=== PATIENT | female | born 1980 | race Caucasian/White ===

== ENCOUNTER 2018-09-26 14:47 | Emergency (ER) | payer OTHER ==
--- NOTE | 2018-09-26 15:22 | ED ---
Complex/Multi-Sys Presentation - HPI Summary HPI Summary: Patient is a 38 y/o F presenting to ED with complaints of congestion, cough, SOB , pruritus and puffiness of eyes, headache for the past ten days with a recent exacerbation in Sx in the past two days. Patient reports that she has been taking Dayquil and notes that she is a current smoker. PMHx of anxiety, depression, bipolar disorder. PSHx of and tubal ligation. FMHx of depression. She denies alcohol and substance usage. While patient reports some MOORE in the room, on triage, pain is denied, nothing is noted to aggravate/ alleviate Sx. Home medications and allergies are reviewed. Mother is present in the room as well. - History Of Current Complaint Chief Complaint: EDFluSymptoms Time Seen by Provider: 09/26/18 15:17 Hx Obtained From: Patient Onset/Duration: Lasting Days - ten days, Still Present, Worse Since - two days Timing: Constant, Days - ten days Severity Currently: Mild Character: Typical Headache Aggravating Factor(s): nothing Alleviating Factor(s): nothing Associated Signs And Symptoms: Positive: Headache, SOB, Cough, Other - congestion, pruritus and puffiness of eyes - Allergies/Home Medications Allergies/Adverse Reactions: Allergies Allergy/AdvReac Type Severity Reaction Status Date / Time No Known Allergies Allergy Verified 05/26/14 13:15 PMH/Surg Hx/FS Hx/Imm Hx Endocrine/Hematology History: Denies: Hx Diabetes, Hx Thyroid Disease Cardiovascular History: Denies: Hx Hypertension Respiratory History: Denies: Hx Asthma, Hx Chronic Obstructive Pulmonary Disease (COPD) GI History: Denies: Hx Ulcer Psychiatric History: Reports: Hx Anxiety, Hx Depression, Hx Community Mental Health Tx, Hx Bipolar Disorder Denies: Hx Eating Disorder, Hx of Violent Episodes Against Others - Surgical History Surgery Procedure, Year, and Place: csection, tubal ligation Infectious Disease History: No Infectious Disease History: Denies: Hx Hepatitis, Hx Human Immunodeficiency Virus (HIV), Traveled Outside the [place] in Last 30 Days - Family History Known Family History: Positive: Other - FMHx of depression - Social History Alcohol Use: None Substance Use Type: Reports: None Smoking Status (MU): Current Every Day Smoker Type: Cigarettes Amount Used/How Often: 1/2ppd Have You Smoked in the Last Year: Yes Review of Systems Eyes: Other - POSITIVE - PUFFINESS AND PRURITUS OF EYES ENT: Other - POSITIVE - CONGESTION Positive: Shortness Of Breath, Cough Positive: Headache All Other Systems Reviewed And Are Negative: Yes Physical Exam - Summary Physical Exam Summary: Appearance: well appearing, no pain distress Skin: warm, dry, reflects adequate perfusion Head/face: normal Eyes: EOMI, JOHNNY ENT: mucous membranes moist; bilateral maxillary sinus tenderness, no nasal discharge Neck: supple, non-tender Respiratory: dry cough, no wheezes, breath sounds present, all else normal Cardiovascular: RRR, pulses symmetrical Abdomen: non-tender, soft Bowel Sounds: present Musculoskeletal: normal, strength/ROM intact Neuro: normal, sensory motor intact, A&Ox3 Triage Information Reviewed: Yes Vital Signs On Initial Exam: Initial Vitals Temp Pulse Resp BP Pulse Ox 97.8 F 96 18 136/89 94 09/26/18 15:01 09/26/18 15:01 09/26/18 15:01 09/26/18 15:01 09/26/18 15:01 Vital Signs Reviewed: Yes Diagnostics - Vital Signs Vital Signs Temp Pulse Resp BP Pulse Ox 09/26/18 15:01 97.8 F 96 18 136/89 94 - Laboratory Lab Statement: Any lab studies that have been ordered have been reviewed, and results considered in the medical decision making process. Complex Multi-Symp Course/Dx Course Of Treatment: Patient with cough and cold symptoms for over 10 days. Now with sinus pressure. No fever. Sinus tenderness to palpation/percussion. Treat as sinusitis. Antibiotics given. Follow-up primary care physician. - Diagnoses Differential Diagnoses/HQI/PQRI: Other - URI, bronchitis, sinusitis Provider Diagnoses: Acute sinusitis, Cough Discharge - Sign-Out/Discharge Documenting (check all that apply): Patient Departure - discharge Patient Received Moderate/Deep Sedation with Procedure: No - Discharge Plan Condition: Improved Disposition: HOME Prescriptions: Albuterol HFA INHALER* [Ventolin HFA Inhaler*] 2 puff INH Q4H PRN #1 mdi PRN Reason: Sob/Wheezing Azithromycin TAB* [Zithromax TAB (Z-ILDEFONSO) 250 mg #6 tabs] 2 tab PO .TODAY, THEN 1 DAILY #1 ildefonso Loratadine/Pseudoephedrine [Claritin-D 24 Hour Tablet] 1 each PO DAILY #10 tab.er.24h predniSONE TAB* [Deltasone TAB*] 50 mg PO DAILY #5 tab Patient Education Materials: Sinusitis (ED) Referrals: [facility] [Outside] Additional Instructions: Tylenol, ibuprofen for discomfort. Vitamin C may help. Return if worse, new symptoms or other concerns. - Billing Disposition and Condition Condition: IMPROVED Disposition: Home - Attestation Statements Document Initiated by Scribe: Yes Documenting Scribe: ENID GAINES Provider For Whom Belkis is Documenting (Include Credential): BRITTNY LILLY MD Scribe Attestation: ENID Kuhn, scribed for BRITTNY LILLY MD on 09/26/18 at 1839. Scribe Documentation Reviewed: Yes Provider Attestation: The documentation as recorded by the ENID barragan accurately reflects the service I personally performed and the decisions made by , BRITTNY LILLY MD Status of Scribe Document: Viewed
[2018-09-26 15:50] VITALS: BP 136/84
== END 2018-09-26 15:49 | disposition home or self-care (01) ==
LOC: ED 14:47
DX: J01.90 Acute sinusitis, unspecified (principal); R05 Cough; F17.210 Nicotine dependence, cigarettes, uncomplicated
CPT/HCPCS: 99281

== ENCOUNTER 2018-11-03 21:25 | Emergency (ER) | payer OTHER ==
[2018-11-03] MEDS ORDERED: Albuterol/Ipratropium NEB.SOL* Albuterol 2.5 MG/Ipratropium 0.5 MG 3 ML INH ONE (23:31)
--- NOTE | 2018-11-03 23:39 | ED ---
Respiratory - HPI Summary HPI Summary: A 38 y/o female accompanied by her father presents to [facility] with a chief complaint of a cough for the past 3 weeks that has worsened today. The patient rates her pain as a 3/10 in severity. She claims that tonight her right lung hurts, she feels SOB, and her legs and kidneys hurt with movement. She reports a dry cough and her legs have been swollen for a week. The patient takes lithium along with other psych medications which is prescribed from her psychiatrist. The patient does not have a PCP. She did get a flu shot. She is a smoker. Her HR is normal and on room air her O2 Sat is 95%-97%. - History of Current Complaint Chief Complaint: EDShortnessOfBreath Stated Complaint: COUGH, RT LUNGS HURT PER PT Time Seen by Provider: 11/03/18 23:17 Hx Obtained From: Patient, Family/Right Of Way Agent Onset/Duration: Gradual Onset, Lasting Weeks, Still Present Timing: Constant Initial Severity: Mild Current Severity: Moderate Pain Intensity: 3 - out of 10 Character: Cough (Nonproductive) Aggravating Factor(s): Movement Alleviating Factor(s): Nothing Associated Signs and Symptoms: SOB, Calf Pain/Swelling - Allergy/Home Medications Allergies/Adverse Reactions: Allergies Allergy/AdvReac Type Severity Reaction Status Date / Time No Known Allergies Allergy Verified 11/03/18 21:30 Home Medications: Home Medications Girard Carbonate TAB* 1 tab PO QID 11/03/18 [History Confirmed 11/03/18] Prazosin HCl 1 mg PO DAILY 11/03/18 [History Confirmed 11/03/18] Venlafaxine HCl [Venlafaxine HCl ER] 225 mg PO DAILY 11/03/18 [History Confirmed 11/03/18] clonazePAM [Clonazepam] 2 tab PO QID 11/03/18 [History Confirmed 11/03/18] traZODone TAB* [Desyrel TAB*] 150 mg PO BEDTIME 11/03/18 [History Confirmed ] PMH/Surg Hx/FS Hx/Imm Hx Endocrine/Hematology History: Denies: Hx Diabetes, Hx Thyroid Disease Cardiovascular History: Denies: Hx Hypertension Respiratory History: Denies: Hx Asthma, Hx Chronic Obstructive Pulmonary Disease (COPD) GI History: Denies: Hx Ulcer Psychiatric History: Reports: Hx Anxiety, Hx Depression, Hx Community Mental Health Tx, Hx Bipolar Disorder Denies: Hx Eating Disorder, Hx of Violent Episodes Against Others - Surgical History Surgery Procedure, Year, and Place: csection, tubal ligation Infectious Disease History: No Infectious Disease History: Denies: Hx Hepatitis, Hx Human Immunodeficiency Virus (HIV), Traveled Outside the [place] in Last 30 Days - Family History Known Family History: Positive: Other - FMHx of depression - Social History Alcohol Use: None Substance Use Type: Reports: None Smoking Status (MU): Current Every Day Smoker Type: Cigarettes Amount Used/How Often: 1/2ppd Have You Smoked in the Last Year: Yes Review of Systems Negative: Fever Positive: Shortness Of Breath, Cough Positive: Myalgia - leg pain All Other Systems Reviewed And Are Negative: Yes Physical Exam - Summary Physical Exam Summary: Constitutional: Well-developed, Well-nourished, Alert. (-) Distressed Skin: Warm, Dry HENT: Normocephalic; Atraumatic Eyes: Conjunctiva normal Neck: Musculoskeletal ROM normal neck. (-) JVD, (-) Stridor, (-) Tracheal deviation Cardio: Rhythm regular, rate normal, Heart sounds normal; Intact distal pulses; The pedal pulses are 2+ and symmetric. Radial pulses are 2+ and symmetric. Pulmonary/Chest wall: at the end of coughing or forced exhalation she has a trace bit of wheezing, (-) Respiratory distress, (-) Rales Abd: Soft, (-) tenderness, (-) Distension, (-) Guarding, (-) Rebound Musculoskeletal: (-) Edema Neuro: Alert, Oriented x3 Psych: no SI or HI, answering questions appropriately. Triage Information Reviewed: Yes Vital Signs On Initial Exam: Initial Vitals Temp Pulse Resp BP Pulse Ox 97.9 F 92 18 147/83 97 11/03/18 21:29 11/03/18 21:29 11/03/18 21:29 11/03/18 21:29 11/03/18 21:29 Vital Signs Reviewed: Yes Diagnostics - Vital Signs Vital Signs Temp Pulse Resp BP Pulse Ox 11/03/18 23:08 95 98 11/03/18 23:07 89 125/96 96 11/03/18 21:29 97.9 F 92 18 147/83 97 - Laboratory Result Diagrams: 11/03/18 23:45 Lab Statement: Any lab studies that have been ordered have been reviewed, and results considered in the medical decision making process. - Radiology CXR Radiology Interpretation Completed By: ED Physician Summary of Radiographic Findings: No focal consolidations. No effusions. Pending official imaging report. Disposition - Course Course Of Treatment: A 38 y/o female accompanied by her father presents to [facility] with a chief complaint of a cough for the past 3 weeks that has worsened today. The physical exam revealed that at the end of coughing or forced exhalation she has a trace bit of wheezing, no SI or HI, answering questions appropriately. CXR showed No focal consolidations. No effusions. In the ED course the patient was given Duoneb INH. Chemistry, urines and toxicology obtained. The urines showed some squamous cells, nothing to suggest UTI. Dx: viral syndrome. The patient will be discharged and follow up with her PCP about smoking cessation. The patient is agreeable with this plan. - Diagnoses Provider Diagnoses: Viral syndrome Discharge - Sign-Out/Discharge Documenting (check all that apply): Patient Departure - DC Patient Received Moderate/Deep Sedation with Procedure: No - Discharge Plan Condition: Improved Disposition: HOME Prescriptions: Albuterol HFA INHALER* [Ventolin HFA Inhaler*] 1 puff INH Q4H PRN #1 mdi PRN Reason: Sob/Wheezing Patient Education Materials: Albuterol (By breathing), How to Stop Smoking (ED) , Viral Syndrome (ED) Referrals: [facility] [Outside] No Primary Care Phys,NOPCP [Primary Care Provider] - - Billing Disposition and Condition Condition: IMPROVED Disposition: Home - Attestation Statements Document Initiated by Seleneibe: Yes Documenting Scribe: Ishaan Katz Provider For Whom Belkis is Documenting (Include Credential): Kye Ferrer MD Scribe Attestation: Ishaan Kuhn scribed for Kye Ferrer MD on 11/04/18 at 0612. Scribe Documentation Reviewed: Yes Provider Attestation: The documentation as recorded by the Ishaan barragan accurately reflects the service I personally performed and the decisions made by me, Kye Ferrer MD Status of Scribe Document: Viewed
[2018-11-04 00:05] LABS: Urine Appearance Clear; Urine Bacteria 1+ (Absent); Urine Bilirubin Negative (Negative); Urine Blood 2+ (Negative); Urine Color Straw; Urine Glucose Negative (Negative); Urine Ketones Negative (Negative); Urine Nitrite Negative (Negative); Urine Protein Negative (Negative); Urine Red Blood Cell 3+(>10/hpf) (Absent); Urine Squamous Epithelial Cell Present (Absent); Urine Urobilinogen Negative (Negative); Urine White Blood Cell Trace(0-5/hpf) (Absent)
[2018-11-04 00:15] LABS: BUN/Creatinine Ratio 20.5 (8-20); EGFR African American 107.4 (>60); EGFR Non-African American 88.8 (>60); Potassium 3.5 mmol/L (3.5-5.0)
[2018-11-04 00:25] LABS: Lithium 0.46 mmol/L (0.6-1.2)
[2018-11-04 01:40] VITALS: BP 123/61
== END 2018-11-04 01:09 | disposition home or self-care (01) ==
LOC: ED 21:25
DX: B34.9 Viral infection, unspecified (principal); F17.210 Nicotine dependence, cigarettes, uncomplicated; Z79.899 Other long term (current) drug therapy
CPT/HCPCS: 36415; 71046; 80048; 80178; 81003; 81015; 87086; 99283; A9270-GY

== ENCOUNTER 2021-05-19 23:19 | Inpatient (IN) ==
[2021-05-19 23:53] LABS: ABS Basophils 0.1 10^3/ul (0-0.2); ABS Eosinophils 0.1 10^3/ul (0-0.6); ABS Lymphocytes 1.8 10^3/ul (1.0-4.8); ABS Monocytes 0.8 10^3/ul (0-0.8); ABS Neutrophils 7.5 10^3/ul (1.5-7.7); Eosinophil % 1.1 %; Hematocrit 34 % (35-47); Hemoglobin 11.3 g/dL (12.0-16.0); Lymphocyte % 17.1 %; Mean Corpuscular HGB Conc 34 g/dL (31-36); Mean Corpuscular Hemoglobin 35 pg (27-31); Mean Corpuscular Volume 105 fL (80-97); Mean Platelet Volume 7.9 fL (7.4-10.4); Platelet Count 251 10^3/uL (150-450); Red Blood Count 3.21 10^6 /uL (3.70-4.87); Red Cell Distribution Width 17 % (10-15); White Blood Count 10.3 10^3/uL (3.5-10.8)
[2021-05-20 00:10] LABS: ALT 40 U/L (7-52); AST 98 U/L (13-39); Albumin 2.8 g/dL (3.2-5.2); Albumin/Globulin Ratio 0.8 (1-3); Alkaline Phosphatase 352 U/L (35-149); Anion Gap 12 mmol/L (2-11); CO2 Carbon Dioxide 25 mmol/L (22-32); Calcium 8.4 mg/dL (8.6-10.3); Chloride 96 mmol/L (101-111); Globulin 3.6 g/dL (2-4); Glucose 111 mg/dL (70-100); Potassium 2.9 mmol/L (3.5-5.0); Sodium 133 mmol/L (135-145); Total Protein 6.4 g/dL (6.4-8.9); eGFR CKD-EPI 120.6 (>60)
[2021-05-20 00:13] LABS: Troponin I 0.01 ng/mL (<0.03)
[2021-05-20 00:17] LABS: HCG Pregnancy < 0.60 mIU/mL
[2021-05-20] MEDS ORDERED: Lactated Ringers 1000 ml BAG 1,000 ML IV ONE ×2 (00:31→04:53)
[2021-05-20 00:36] LABS: Blood Urea Nitrogen 1 mg/dL (6-24)
[2021-05-20] MEDS ORDERED: Iohexol 300 (CONTRAST) 10 ML SDV IV ONE (01:04)
[2021-05-20 01:08] LABS: Rapid COVID-19 Molecular Undetected (Undetected)
[2021-05-20] MEDS ORDERED: Potassium Chlor 20 meq TAB.ER PO ONE (03:27)
[2021-05-20] MEDS ORDERED: Albuterol HFA INHALER 8 gm MDI INH PRN (04:56)
[2021-05-20] MEDS ORDERED: NS 0.9% w/ 40 Meq KCL 1000 ML 1,000 ML IV SCH (05:00)
[2021-05-20] MEDS: Ondansetron 4 mg VIAL 2 MG/ML 2 ml VIAL IV PRN ×2 (05:26→18:23)
[2021-05-20 06:11] LABS: C Reactive Protein 74.17 mg/L (<8.01); Indirect Bilirubin 1.2 mg/dL (0.3-1.0); Magnesium 1.9 mg/dL (1.9-2.7)
[2021-05-20 06:45] LABS: TSH Ultra Thyroid Stim Horm 2.38 mcIU/mL (0.34-5.60)
[2021-05-20 06:56] LABS: Folate 6.18 ng/mL (5.90-24.80)
[2021-05-20 06:57] LABS: Vitamin B12 722 pg/mL (180-914)
[2021-05-20 09:00] LABS: Anion Gap 10 mmol/L (2-11); CO2 Carbon Dioxide 26 mmol/L (22-32); Calcium 8.5 mg/dL (8.6-10.3); Chloride 99 mmol/L (101-111); Glucose 135 mg/dL (70-100); Potassium 3.4 mmol/L (3.5-5.0); Sodium 135 mmol/L (135-145); eGFR CKD-EPI 121.2 (>60)
[2021-05-20 09:39] LABS: Lipase < 10 U/L (11.0-82.0)
[2021-05-20 09:58] LABS: Blood Urea Nitrogen < 2 mg/dL (6-24)
[2021-05-20] MEDS: Enoxaparin 40 MG/0.4 ML SYR SUBCUT SCH (10:41)
[2021-05-20 11:23] LABS: Hepatitis B Surface Antigen Nonreactive (Nonreactive)
[2021-05-20 11:28] LABS: Hepatitis A Ab IgM Negative (Negative); Hepatitis B Core IgM Nonreactive (Nonreactive)
[2021-05-20 11:40] LABS: Hepatitis C Antibody Negative (Negative)
[2021-05-20] MEDS: NS 0.9% 1000 ml BAG 1,000 ML IV SCH ×2 (13:50→23:35)
[2021-05-20] MEDS ORDERED: PEG 3000 GI LAVAGE 1 GALLON PO ONE (17:14)
[2021-05-20 18:19] LABS: Anion Gap 8 mmol/L (2-11); CO2 Carbon Dioxide 28 mmol/L (22-32); Calcium 8.8 mg/dL (8.6-10.3); Chloride 100 mmol/L (101-111); Glucose 103 mg/dL (70-100); Potassium 3.6 mmol/L (3.5-5.0); Sodium 136 mmol/L (135-145); eGFR CKD-EPI 124.5 (>60)
[2021-05-20 20:25] LABS: Blood Urea Nitrogen < 2 mg/dL (6-24)
[2021-05-21 07:25] LABS: ABS Eosinophils 0.1 10^3/ul (0-0.6); ABS Monocytes 0.5 10^3/ul (0-0.8); ABS Neutrophils 5.8 10^3/ul (1.5-7.7); Eosinophil % 1.3 %; Hematocrit 34 % (35-47); Hemoglobin 11.2 g/dL (12.0-16.0); Lymphocyte % 13.4 %; Mean Corpuscular HGB Conc 33 g/dL (31-36); Mean Corpuscular Hemoglobin 36 pg (27-31); Mean Corpuscular Volume 106 fL (80-97); Mean Platelet Volume 7.9 fL (7.4-10.4); Platelet Count 280 10^3/uL (150-450); Red Blood Count 3.15 10^6 /uL (3.70-4.87); Red Cell Distribution Width 18 % (10-15); White Blood Count 7.4 10^3/uL (3.5-10.8)
[2021-05-21 07:41] LABS: Albumin 2.8 g/dL (3.2-5.2); Albumin/Globulin Ratio 0.8 (1-3); Calcium 8.4 mg/dL (8.6-10.3); Globulin 3.5 g/dL (2-4); Magnesium 2.3 mg/dL (1.9-2.7); Potassium 3.4 mmol/L (3.5-5.0); Total Bilirubin 2.3 mg/dL (0.2-1.0); Total Protein 6.3 g/dL (6.4-8.9); eGFR CKD-EPI 121.2 (>60)
[2021-05-21] MEDS: Enoxaparin 40 MG/0.4 ML SYR SUBCUT SCH (09:20)
[2021-05-21] MEDS ORDERED: Propofol 10 mg/ml 100 ML BTL 100 ML ONE (14:43)
[2021-05-21] MEDS ORDERED: Midazolam 2 mg/2 ml VIAL 1 mg/ml 2 ml VIAL (2 mg) ONE (14:47)
[2021-05-22 05:41] LABS: ABS Basophils 0.1 10^3/ul (0-0.2); ABS Eosinophils 0.1 10^3/ul (0-0.6); ABS Lymphocytes 1.1 10^3/ul (1.0-4.8); ABS Monocytes 0.5 10^3/ul (0-0.8); ABS Neutrophils 4.5 10^3/ul (1.5-7.7); Eosinophil % 1.6 %; Hematocrit 29 % (35-47); Hemoglobin 9.8 g/dL (12.0-16.0); Lymphocyte % 17.9 %; Mean Corpuscular HGB Conc 34 g/dL (31-36); Mean Corpuscular Hemoglobin 36 pg (27-31); Mean Corpuscular Volume 106 fL (80-97); Mean Platelet Volume 7.5 fL (7.4-10.4); Platelet Count 226 10^3/uL (150-450); Red Blood Count 2.76 10^6 /uL (3.70-4.87); Red Cell Distribution Width 18 % (10-15); White Blood Count 6.3 10^3/uL (3.5-10.8)
[2021-05-22 05:47] LABS: ALT 31 U/L (7-52); AST 103 U/L (13-39); Albumin 2.4 g/dL (3.2-5.2); Albumin/Globulin Ratio 0.8 (1-3); Alkaline Phosphatase 285 U/L (35-149); Anion Gap 6 mmol/L (2-11); CO2 Carbon Dioxide 28 mmol/L (22-32); Calcium 7.9 mg/dL (8.6-10.3); Chloride 105 mmol/L (101-111); Glucose 119 mg/dL (70-100); Potassium 3.1 mmol/L (3.5-5.0); Sodium 139 mmol/L (135-145); Total Protein 5.4 g/dL (6.4-8.9); eGFR CKD-EPI 120.6 (>60)
[2021-05-22 05:57] LABS: Blood Urea Nitrogen < 2 mg/dL (6-24)
[2021-05-22] MEDS: Enoxaparin 40 MG/0.4 ML SYR SUBCUT SCH (08:02)
[2021-05-22] MEDS ORDERED: Potassium Chlor 20 meq TAB.ER PO SCH (09:00)
[2021-05-22] MEDS ORDERED: Cholestyramine Resin 4 GM POWDER PO SCH (11:00)
[2021-05-22 11:51] VITALS: BP 119/58
[2021-05-22 13:17] LABS: Tissue Transglutaminase IgA Ab <1.2 U/mL
[2021-05-22 14:32] LABS: Folate 7.34 ng/mL (5.90-24.80); Vitamin B12 916 pg/mL (180-914)
[2021-05-22 20:35] LABS: Calprotectin <50.0 mcg/g
[2021-05-23 23:57] LABS: Immunoglobulin A 335 mg/dL (61 - 356)
== END 2021-05-22 13:00 | disposition home or self-care (01) | DRG 249 ==
LOC: ED 23:19 → EDHOLD 05-20 04:43 → SUATTDRO 05-20 04:43 → MEDTELE 05-20 16:48
PROVIDERS: ADMIT Internal Medicine; ATTEND Student in an Organized Health Care Education/Training Program

== ENCOUNTER 2021-07-09 09:42 | Inpatient (IN) ==
[2021-07-09 11:14] LABS: ABS Basophils 0.1 10^3/ul (0-0.2); ABS Eosinophils 0.1 10^3/ul (0-0.6); ABS Lymphocytes 1.1 10^3/ul (1.0-4.8); ABS Monocytes 1.1 10^3/ul (0-0.8); Eosinophil % 0.8 %; Hematocrit 30 % (35-47); Hemoglobin 9.8 g/dL (12.0-16.0); Lymphocyte % 8.2 %; Mean Corpuscular HGB Conc 33 g/dL (31-36); Mean Corpuscular Hemoglobin 39 pg (27-31); Mean Corpuscular Volume 117 fL (80-97); Mean Platelet Volume 8.4 fL (7.4-10.4); Platelet Count 251 10^3/uL (150-450); Red Blood Count 2.54 10^6 /uL (3.70-4.87); Red Cell Distribution Width 16 % (10-15); White Blood Count 13.4 10^3/uL (3.5-10.8)
[2021-07-09 11:18] LABS: INR 2.38 (0.86-1.15)
[2021-07-09] MEDS ORDERED: cefTRIAXone 2 GM ADDV.VIAL 2 GM in NS 0.9% 100 ml BAG 100 ML IVPB ONE (11:40)
[2021-07-09] MEDS ORDERED: Lactulose 300 ML for PR 200 GM/300 ML BTL PR ONE (11:40)
[2021-07-09 11:47] LABS: Albumin 2.5 g/dL (3.2-5.2); Albumin/Globulin Ratio 0.7 (1-3); Calcium 8.7 mg/dL (8.6-10.3); Globulin 3.6 g/dL (2-4); Total Protein 6.1 g/dL (6.4-8.9); eGFR CKD-EPI 76.7 (>60)
[2021-07-09 11:51] LABS: Total Bilirubin 18.6 mg/dL (0.2-1.0)
[2021-07-09] MEDS ORDERED: Iohexol 300 (CONTRAST) 10 ML SDV IV ONE (12:31)
[2021-07-09] MEDS ORDERED: Iodixanol (CONTRAST) 320 MG/ML 100 ML SDV IV ONE (12:34)
[2021-07-09 14:33] LABS: Urine Appearance Clear; Urine Bilirubin 1+ (Negative); Urine Blood 1+ (Negative); Urine Color Amber; Urine Glucose Negative (Negative); Urine Ketones Negative (Negative); Urine Nitrite Positive (Negative); Urine Protein Negative (Negative); Urine Specific Gravity 1.012 (1.002-1.030); Urine Urobilinogen Negative (Negative)
[2021-07-09 14:37] LABS: Urine Bacteria 1+ (Absent); Urine Red Blood Cell Absent (Absent); Urine Squamous Epithelial Cell Present (Absent); Urine White Blood Cell Trace(0-5/hpf) (Absent)
[2021-07-09] MEDS ORDERED: Enoxaparin 40 MG/0.4 ML SYR SUBCUT SCH (16:00)
[2021-07-09] MEDS ORDERED: cefTRIAXone 1 gm/50 mL NS BAG 1 GM/50 ML BAG IVPB SCH (16:00)
[2021-07-09] MEDS ORDERED: Al Hydrox/Mg Hydrox/Simet LIQ 30 ML UDC PO SCH (16:00)
[2021-07-09 16:04] LABS: Indirect Bilirubin 8.6 mg/dL (0.3-1.0)
[2021-07-09 16:56] LABS: Total Bilirubin 18.6 mg/dL (0.2-1.0)
[2021-07-09] MEDS: methylPREDNISolone SOD 40 mg/ml 1 ml VIAL IV SCH (18:30)
[2021-07-09 18:53] LABS: Lithium 2.71 mmol/L (0.6-1.2)
[2021-07-09 20:43] LABS: HIV 4th Generation Nonreactive (Nonreactive)
[2021-07-09] MEDS: Ondansetron 4 mg VIAL 2 MG/ML 2 ml VIAL IV PRN (21:14)
[2021-07-09] MEDS: Lactulose 300 ML for PR 200 GM/300 ML BTL PR SCH ×2 (21:16)
[2021-07-09] MEDS: Potassium Chloride LIQUID 20 MEQ/15 ML LIQUID PO SCH (21:48)
[2021-07-09] MEDS: Lactulose 30 ml UDC PO SCH (21:48)
[2021-07-09] MEDS: Furosemide 40 mg/4 ml IV VIAL IV SCH (22:03)
[2021-07-10 06:47] LABS: Hematocrit 29 % (35-47); Hemoglobin 9.4 g/dL (12.0-16.0); Mean Corpuscular HGB Conc 33 g/dL (31-36); Mean Corpuscular Hemoglobin 39 pg (27-31); Mean Corpuscular Volume 118 fL (80-97); Mean Platelet Volume 8.2 fL (7.4-10.4); Platelet Count 270 10^3/uL (150-450); Red Blood Count 2.41 10^6 /uL (3.70-4.87); Red Cell Distribution Width 16 % (10-15); White Blood Count 13.4 10^3/uL (3.5-10.8)
[2021-07-10 06:50] LABS: INR 2.34 (0.86-1.15)
[2021-07-10 07:25] LABS: Albumin 2.4 g/dL (3.2-5.2)
[2021-07-10 07:29] LABS: Anion Gap 8 mmol/L (2-11); CO2 Carbon Dioxide 25 mmol/L (22-32); Chloride 105 mmol/L (101-111); Sodium 138 mmol/L (135-145)
[2021-07-10 07:30] LABS: Calcium 8.8 mg/dL (8.6-10.3); Lithium 1.45 mmol/L (0.6-1.2)
[2021-07-10 07:31] LABS: Albumin/Globulin Ratio 0.8 (1-3); Globulin 3.2 g/dL (2-4); Total Protein 5.6 g/dL (6.4-8.9)
[2021-07-10 07:35] LABS: ALT 20 U/L (7-52); Alkaline Phosphatase 256 U/L (35-149); Blood Urea Nitrogen 3 mg/dL (6-24); Glucose 129 mg/dL (70-100); eGFR CKD-EPI 78.7 (>60)
[2021-07-10] MEDS: methylPREDNISolone SOD 40 mg/ml 1 ml VIAL IV SCH (08:41)
[2021-07-10] MEDS: Furosemide 40 mg/4 ml IV VIAL IV SCH (08:42)
[2021-07-10 09:19] LABS: Potassium Redraw 4.2 mmol/L (3.5-5.0)
[2021-07-10] MEDS: Lactulose 30 ml UDC PO SCH ×4 (09:22→21:00)
[2021-07-10] MEDS: Lactulose 300 ML for PR 200 GM/300 ML BTL PR SCH ×3 (09:40→17:09)
[2021-07-10] MEDS: Potassium Chloride LIQUID 20 MEQ/15 ML LIQUID PO SCH (09:42)
[2021-07-10] MEDS: Ondansetron 4 mg VIAL 2 MG/ML 2 ml VIAL IV PRN (10:16)
[2021-07-10] MEDS: cefTRIAXone 1 gm/50 mL NS BAG 1 GM/50 ML BAG IVPB SCH (15:59)
[2021-07-10 20:01] LABS: Calcium 8.9 mg/dL (8.6-10.3); Potassium 4.2 mmol/L (3.5-5.0); eGFR CKD-EPI 69.6 (>60)
[2021-07-11] MEDS: Potassium Chloride LIQUID 20 MEQ/15 ML LIQUID PO SCH ×3 (00:14→21:49)
[2021-07-11] MEDS ORDERED: Enoxaparin 100 MG/ML SYR SUBCUT SCH (01:00)
[2021-07-11] MEDS: Lactulose 300 ML for PR 200 GM/300 ML BTL PR SCH ×5 (01:02→21:00)
[2021-07-11] MEDS: Lactulose 30 ml UDC PO SCH ×7 (04:48→21:25)
[2021-07-11 05:43] LABS: INR 2.76 (0.86-1.15)
[2021-07-11 05:45] LABS: ABS Basophils 0.1 10^3/ul (0-0.2); ABS Eosinophils 0.1 10^3/ul (0-0.6); ABS Lymphocytes 1.2 10^3/ul (1.0-4.8); ABS Monocytes 1.6 10^3/ul (0-0.8); ABS Neutrophils 15.9 10^3/ul (1.5-7.7); Eosinophil % 0.4 %; Hematocrit 29 % (35-47); Hemoglobin 9.2 g/dL (12.0-16.0); Lymphocyte % 6.6 %; Mean Corpuscular HGB Conc 32 g/dL (31-36); Mean Corpuscular Hemoglobin 38 pg (27-31); Mean Corpuscular Volume 119 fL (80-97); Mean Platelet Volume 7.8 fL (7.4-10.4); Platelet Count 358 10^3/uL (150-450); Red Blood Count 2.45 10^6 /uL (3.70-4.87); Red Cell Distribution Width 16 % (10-15); White Blood Count 18.9 10^3/uL (3.5-10.8)
[2021-07-11 06:24] LABS: Albumin 2.4 g/dL (3.2-5.2); Calcium 8.9 mg/dL (8.6-10.3); Potassium 4.4 mmol/L (3.5-5.0); Total Protein 5.6 g/dL (6.4-8.9); eGFR CKD-EPI 68.8 (>60)
[2021-07-11 06:25] LABS: Albumin/Globulin Ratio 0.8 (1-3); Globulin 3.2 g/dL (2-4)
[2021-07-11 06:32] LABS: Total Bilirubin 19.5 mg/dL (0.2-1.0)
[2021-07-11 06:43] LABS: Direct Bilirubin 13.4 mg/dL (0.03-0.18); Indirect Bilirubin 6.1 mg/dL (0.3-1.0)
[2021-07-11] MEDS: Furosemide 40 mg/4 ml IV VIAL IV SCH (09:59)
[2021-07-11] MEDS ORDERED: Heparin DRIP 25,000 UNITS BAG 25,000 UNITS/500 ML BAG IV SCH (12:45)
[2021-07-11] MEDS ORDERED: Heparin 5000 UNITS/ML 1 mL VIAL IV SCH (13:00)
[2021-07-11] MEDS: Ondansetron 4 mg VIAL 2 MG/ML 2 ml VIAL IV PRN ×2 (13:07→20:46)
[2021-07-11 13:30] LABS: ABS Basophils 0.1 10^3/ul (0-0.2); ABS Eosinophils 0.1 10^3/ul (0-0.6); ABS Lymphocytes 1.2 10^3/ul (1.0-4.8); ABS Monocytes 1.3 10^3/ul (0-0.8); ABS Neutrophils 15.2 10^3/ul (1.5-7.7); Eosinophil % 0.5 %; Hematocrit 30 % (35-47); Hemoglobin 9.5 g/dL (12.0-16.0); Lymphocyte % 6.6 %; Mean Corpuscular HGB Conc 32 g/dL (31-36); Mean Corpuscular Hemoglobin 38 pg (27-31); Mean Corpuscular Volume 120 fL (80-97); Mean Platelet Volume 7.9 fL (7.4-10.4); Nucleated Red Blood Cells % 0.1; Platelet Count 362 10^3/uL (150-450); Red Blood Count 2.51 10^6 /uL (3.70-4.87); Red Cell Distribution Width 16 % (10-15); White Blood Count 17.8 10^3/uL (3.5-10.8)
[2021-07-11 13:53] LABS: eGFR CKD-EPI 63.6 (>60)
[2021-07-11] MEDS: cefTRIAXone 1 gm/50 mL NS BAG 1 GM/50 ML BAG IVPB SCH (15:35)
[2021-07-11] MEDS ORDERED: Calcium Carb (TUMS) 500 mg CHEW TAB PO ONE (15:44)
[2021-07-11] MEDS ORDERED: Lactated Ringers 1000 ml BAG 1,000 ML IV SCH (18:00)
[2021-07-12] MEDS ORDERED: Thiamine 100 MG/ML 2 ml VIAL (200 mg) IM ONE (00:12)
[2021-07-12] MEDS: Lactulose 30 ml UDC PO SCH ×6 (00:32→22:18)
[2021-07-12] MEDS: Multivitamins/Minerals TAB PO SCH ×2 (01:31→10:26)
[2021-07-12 02:51] LABS: Activated Partial Thrombo Time 92.1 seconds (26.0-38.0)
[2021-07-12 06:39] LABS: Hematocrit 28 % (35-47); Hemoglobin 9.1 g/dL (12.0-16.0); Red Blood Count 2.37 10^6 /uL (3.70-4.87); White Blood Count 17.7 10^3/uL (3.5-10.8)
[2021-07-12 06:41] LABS: ABS Basophils 0.1 10^3/ul (0-0.2); ABS Eosinophils 0.1 10^3/ul (0-0.6); ABS Lymphocytes 1.6 10^3/ul (1.0-4.8); ABS Monocytes 1.3 10^3/ul (0-0.8); ABS Neutrophils 14.6 10^3/ul (1.5-7.7); Eosinophil % 0.5 %; Lymphocyte % 9.2 %; Mean Corpuscular HGB Conc 33 g/dL (31-36); Mean Corpuscular Hemoglobin 39 pg (27-31); Mean Platelet Volume 7.6 fL (7.4-10.4); Platelet Count 323 10^3/uL (150-450); Red Cell Distribution Width 15 % (10-15)
[2021-07-12 07:19] LABS: Mean Corpuscular Volume 119 fL (80-97)
[2021-07-12 07:25] LABS: ALT 24 U/L (7-52); Albumin 2.4 g/dL (3.2-5.2); Albumin/Globulin Ratio 0.8 (1-3); Alkaline Phosphatase 218 U/L (35-149); Blood Urea Nitrogen 12 mg/dL (6-24); CO2 Carbon Dioxide 26 mmol/L (22-32); Calcium 8.7 mg/dL (8.6-10.3); Chloride 100 mmol/L (101-111); Glucose 109 mg/dL (70-100); Sodium 133 mmol/L (135-145); Total Protein 5.4 g/dL (6.4-8.9); eGFR CKD-EPI 65.8 (>60)
[2021-07-12 07:30] LABS: Anion Gap 7 mmol/L (2-11)
[2021-07-12] MEDS ORDERED: Lactated Ringers 1000 ml BAG 1,000 ML IV ONE (10:16)
[2021-07-12] MEDS: Lactulose 300 ML for PR 200 GM/300 ML BTL PR SCH ×4 (10:25→21:57)
[2021-07-12] MEDS: Potassium Chloride LIQUID 20 MEQ/15 ML LIQUID PO SCH ×2 (10:26→22:13)
[2021-07-12 12:03] LABS: CMV DNA DETECT/QT, P Undetected IU/mL (Undetected)
[2021-07-12 14:58] LABS: Immunoglobulin A 488 mg/dL (61 - 356); Immunoglobulin G 1360 mg/dL (767 - 1590); Immunoglobulin M 485 mg/dL (37 - 286)
[2021-07-12 15:57] LABS: Ceruloplasmin 39.2 mg/dL
[2021-07-12 16:01] LABS: INR 3.8 (0.86-1.15)
[2021-07-12] MEDS ORDERED: Ketamine HCL 50 mg/ml 10 ml VIAL (500 MG) ONE (16:01)
[2021-07-12] MEDS: cefTRIAXone 1 gm/50 mL NS BAG 1 GM/50 ML BAG IVPB SCH (17:17)
[2021-07-12] MEDS ORDERED: Phytonadione IV (Adult) 10 MG in NS 0.9% 50 ML 50 ML IV ONE (17:30)
[2021-07-12] MEDS ORDERED: Albumin Human 25% 25 GM/100 ML BTL IV ONE (17:30)
[2021-07-12] MEDS: Enoxaparin 100 MG/ML SYR SUBCUT SCH (18:41)
[2021-07-12] MEDS ORDERED: Iodixanol (CONTRAST) 320 MG/ML 100 ML SDV IV ONE (19:50)
[2021-07-12] MEDS: Pantoprazole VIAL 40 MG VIAL IV SCH (22:22)
[2021-07-13] MEDS: Enoxaparin 100 MG/ML SYR SUBCUT SCH (05:18)
[2021-07-13 08:28] LABS: INR 2.11 (0.86-1.15)
[2021-07-13 08:29] LABS: ABS Basophils 0.1 10^3/ul (0-0.2); ABS Eosinophils 0.1 10^3/ul (0-0.6); ABS Lymphocytes 1.2 10^3/ul (1.0-4.8); ABS Monocytes 1.2 10^3/ul (0-0.8); ABS Neutrophils 14.1 10^3/ul (1.5-7.7); Eosinophil % 0.5 %; Hematocrit 27 % (35-47); Hemoglobin 8.7 g/dL (12.0-16.0); Lymphocyte % 7.4 %; Mean Corpuscular HGB Conc 33 g/dL (31-36); Mean Corpuscular Hemoglobin 39 pg (27-31); Mean Corpuscular Volume 121 fL (80-97); Mean Platelet Volume 7.5 fL (7.4-10.4); Nucleated Red Blood Cells % 0.1; Platelet Count 321 10^3/uL (150-450); Red Blood Count 2.22 10^6 /uL (3.70-4.87); Red Cell Distribution Width 16 % (10-15); White Blood Count 16.7 10^3/uL (3.5-10.8)
[2021-07-13 09:20] LABS: Albumin 2.7 g/dL (3.2-5.2); Calcium 8.7 mg/dL (8.6-10.3); Globulin 2.7 g/dL (2-4); Potassium 4.4 mmol/L (3.5-5.0); Total Protein 5.4 g/dL (6.4-8.9); eGFR CKD-EPI 77.7 (>60)
[2021-07-13 09:37] LABS: Direct Bilirubin 17.5 mg/dL (0.03-0.18)
[2021-07-13 09:47] LABS: Total Bilirubin 26.5 mg/dL (0.2-1.0)
[2021-07-13] MEDS: Potassium Chloride LIQUID 20 MEQ/15 ML LIQUID PO SCH ×2 (10:46→20:10)
[2021-07-13] MEDS: Multivitamins/Minerals TAB PO SCH (10:50)
[2021-07-13] MEDS: Pantoprazole VIAL 40 MG VIAL IV SCH ×2 (11:04→20:11)
[2021-07-13] MEDS: Lactulose 300 ML for PR 200 GM/300 ML BTL PR SCH ×5 (11:30→19:21)
[2021-07-13 12:23] LABS: Mitochondria M2 Antibody <0.1 U
[2021-07-13] MEDS ORDERED: Albumin Human 25% 25 GM/100 ML BTL IV ONE (14:30)
[2021-07-13 14:32] LABS: ABS Eosinophils 0.1 10^3/ul (0-0.6); ABS Lymphocytes 1.3 10^3/ul (1.0-4.8); ABS Monocytes 1.2 10^3/ul (0-0.8); ABS Neutrophils 14.8 10^3/ul (1.5-7.7); Eosinophil % 0.4 %; Hematocrit 27 % (35-47); Hemoglobin 8.6 g/dL (12.0-16.0); Lymphocyte % 7.2 %; Mean Corpuscular HGB Conc 32 g/dL (31-36); Mean Corpuscular Hemoglobin 39 pg (27-31); Mean Corpuscular Volume 121 fL (80-97); Mean Platelet Volume 7.3 fL (7.4-10.4); Nucleated Red Blood Cells % 0.1; Platelet Count 322 10^3/uL (150-450); Red Blood Count 2.21 10^6 /uL (3.70-4.87); Red Cell Distribution Width 16 % (10-15); White Blood Count 17.4 10^3/uL (3.5-10.8)
[2021-07-13 14:38] LABS: INR 1.78 (0.86-1.15)
[2021-07-13 15:24] LABS: eGFR CKD-EPI 73.9 (>60)
[2021-07-13] MEDS: cefTRIAXone 1 gm/50 mL NS BAG 1 GM/50 ML BAG IVPB SCH (15:31)
[2021-07-13] MEDS: Heparin 5000 UNITS/ML 1 mL VIAL SUBCUT SCH (20:13)
[2021-07-14 08:26] LABS: INR 1.69 (0.86-1.15)
[2021-07-14 08:47] LABS: Calcium 8.7 mg/dL (8.6-10.3); Potassium 4.3 mmol/L (3.5-5.0); eGFR CKD-EPI 90.2 (>60)
[2021-07-14 09:09] LABS: Direct Bilirubin 21.2 mg/dL (0.03-0.18)
[2021-07-14 09:10] LABS: Magnesium 2.5 mg/dL (1.9-2.7)
[2021-07-14 09:11] LABS: Total Bilirubin 35.2 mg/dL (0.2-1.0)
[2021-07-14] MEDS: Pantoprazole VIAL 40 MG VIAL IV SCH ×2 (09:55→22:08)
[2021-07-14] MEDS: Potassium Chloride LIQUID 20 MEQ/15 ML LIQUID PO SCH ×2 (09:55→22:07)
[2021-07-14] MEDS: Multivitamins/Minerals TAB PO SCH (09:56)
[2021-07-14] MEDS: Lactulose 300 ML for PR 200 GM/300 ML BTL PR SCH ×2 (09:57→14:31)
[2021-07-14] MEDS: Heparin 5000 UNITS/ML 1 mL VIAL SUBCUT SCH ×2 (09:59→22:08)
[2021-07-14] MEDS: Albumin Human 25% 25 GM/100 ML BTL IV SCH (11:34)
[2021-07-14] MEDS ORDERED: Furosemide 40 mg/4 ml IV VIAL IV ONE (12:49)
[2021-07-14] MEDS: Lactulose 30 ml UDC PO SCH ×2 (13:49→22:08)
[2021-07-14] MEDS: cefTRIAXone 1 gm/50 mL NS BAG 1 GM/50 ML BAG IVPB SCH (16:25)
[2021-07-15 05:31] LABS: ABS Basophils 0.3 10^3/ul (0-0.2); ABS Eosinophils 0.1 10^3/ul (0-0.6); ABS Lymphocytes 1.4 10^3/ul (1.0-4.8); ABS Monocytes 1.3 10^3/ul (0-0.8); ABS Neutrophils 15.7 10^3/ul (1.5-7.7); ABS Nucleated RBC 0.1 10^3/ul; Eosinophil % 0.5 %; Hematocrit 24 % (35-47); Hemoglobin 7.5 g/dL (12.0-16.0); Lymphocyte % 7.7 %; Mean Corpuscular HGB Conc 32 g/dL (31-36); Mean Corpuscular Hemoglobin 38 pg (27-31); Mean Corpuscular Volume 120 fL (80-97); Mean Platelet Volume 7.3 fL (7.4-10.4); Nucleated Red Blood Cells % 0.2; Platelet Count 293 10^3/uL (150-450); Red Blood Count 1.98 10^6 /uL (3.70-4.87); Red Cell Distribution Width 16 % (10-15); White Blood Count 18.8 10^3/uL (3.5-10.8)
[2021-07-15 05:35] LABS: INR 1.7 (0.86-1.15)
[2021-07-15 05:45] LABS: Calcium 8.5 mg/dL (8.6-10.3); Lithium 0.36 mmol/L (0.6-1.2); Potassium 3.7 mmol/L (3.5-5.0); eGFR CKD-EPI 86.4 (>60)
[2021-07-15 06:06] LABS: Indirect Bilirubin 14.3 mg/dL (0.3-1.0); Total Bilirubin 36.3 mg/dL (0.2-1.0)
[2021-07-15 06:44] LABS: Magnesium 2.3 mg/dL (1.9-2.7)
[2021-07-15] MEDS: Lactulose 30 ml UDC PO SCH ×3 (09:50→20:43)
[2021-07-15] MEDS: Albumin Human 25% 25 GM/100 ML BTL IV SCH (09:52)
[2021-07-15] MEDS: Potassium Chloride LIQUID 20 MEQ/15 ML LIQUID PO SCH ×2 (09:58→20:41)
[2021-07-15] MEDS: Multivitamins/Minerals TAB PO SCH (09:58)
[2021-07-15] MEDS: Pantoprazole VIAL 40 MG VIAL IV SCH ×2 (09:58→20:40)
[2021-07-15] MEDS: Heparin 5000 UNITS/ML 1 mL VIAL SUBCUT SCH ×2 (09:59→20:40)
[2021-07-15] MEDS ORDERED: Vancomycin per Pharmacy 1 EA NOTE FOLLOW UP SCH (11:00)
[2021-07-15] MEDS ORDERED: Vancomycin 1,500 MG in NS 0.9% 250 ml 250 ML IVPB ONE (11:00)
[2021-07-15] MEDS ORDERED: Cefepime 1 GM in Dextrose 1 GM/50 ML BAG IV SCH (11:00)
[2021-07-15] MEDS ORDERED: Furosemide 40 mg/4 ml IV VIAL IV ONE (15:14)
[2021-07-15] MEDS: Vancomycin 1,250 MG in NS 0.9% 250 ml 250 ML IVPB SCH (20:40)
[2021-07-15] MEDS: Cefepime 2 GM in Dextrose 2 GM/50 ML BAG IV SCH (20:42)
[2021-07-16] MEDS: Vancomycin 1,250 MG in NS 0.9% 250 ml 250 ML IVPB SCH ×2 (05:02→13:36)
[2021-07-16 05:39] LABS: Hematocrit 22 % (35-47); Hemoglobin 7.1 g/dL (12.0-16.0); Mean Corpuscular HGB Conc 32 g/dL (31-36); Mean Corpuscular Hemoglobin 39 pg (27-31); Mean Corpuscular Volume 121 fL (80-97); Mean Platelet Volume 7.6 fL (7.4-10.4); Platelet Count 248 10^3/uL (150-450); Red Blood Count 1.83 10^6 /uL (3.70-4.87); Red Cell Distribution Width 17 % (10-15); White Blood Count 17.7 10^3/uL (3.5-10.8)
[2021-07-16 05:41] LABS: INR 1.75 (0.86-1.15)
[2021-07-16 06:02] LABS: Calcium 8.3 mg/dL (8.6-10.3); Potassium 3.6 mmol/L (3.5-5.0); eGFR CKD-EPI 84.1 (>60)
[2021-07-16 06:23] LABS: Direct Bilirubin 21.9 mg/dL (0.03-0.18); Indirect Bilirubin 15.3 mg/dL (0.3-1.0); Total Bilirubin 37.2 mg/dL (0.2-1.0)
[2021-07-16 07:45] LABS: Anisocytosis 1+; Macrocytosis 3+
[2021-07-16 07:47] LABS: ABS Basophils 0.1 10^3/ul (0-0.2); ABS Eosinophils 0.2 10^3/ul (0-0.6); ABS Lymphocytes 1.4 10^3/ul (1.0-4.8); ABS Monocytes 1.2 10^3/ul (0-0.8); ABS Neutrophils 14.9 10^3/ul (1.5-7.7); Eosinophil % 0.9 %; Nucleated Red Blood Cells % 0.1; Polychromasia 1+
[2021-07-16] MEDS ORDERED: KCL 10 MEQ/50 ML IVPREMIX 10 MEQ/50 ML BAG IV SCH (08:00)
[2021-07-16] MEDS: Cefepime 2 GM in Dextrose 2 GM/50 ML BAG IV SCH ×2 (08:16→20:12)
[2021-07-16] MEDS: Lactulose 30 ml UDC PO SCH ×4 (09:32→20:15)
[2021-07-16] MEDS: Potassium Chloride LIQUID 20 MEQ/15 ML LIQUID PO SCH ×2 (09:33→20:15)
[2021-07-16] MEDS: Heparin 5000 UNITS/ML 1 mL VIAL SUBCUT SCH ×2 (09:35→20:13)
[2021-07-16] MEDS: Pantoprazole VIAL 40 MG VIAL IV SCH ×2 (09:35→20:12)
[2021-07-16] MEDS: Lidocaine PATCH 5% PATCH TRANSDERM SCH (09:36)
[2021-07-16] MEDS: Multivitamins/Minerals TAB PO SCH (09:55)
[2021-07-16 10:06] LABS: Magnesium 2.2 mg/dL (1.9-2.7)
[2021-07-16] MEDS ORDERED: Furosemide 40 mg/4 ml IV VIAL IV ONE (12:00)
[2021-07-17 05:53] LABS: INR 1.69 (0.86-1.15)
[2021-07-17 06:03] LABS: ABS Basophils 0.1 10^3/ul (0-0.2); ABS Eosinophils 0.1 10^3/ul (0-0.6); ABS Lymphocytes 0.9 10^3/ul (1.0-4.8); ABS Monocytes 1.1 10^3/ul (0-0.8); ABS Neutrophils 12.7 10^3/ul (1.5-7.7); Eosinophil % 0.6 %; Hematocrit 25 % (35-47); Hemoglobin 8.1 g/dL (12.0-16.0); Lymphocyte % 6.3 %; Mean Corpuscular HGB Conc 33 g/dL (31-36); Mean Corpuscular Hemoglobin 38 pg (27-31); Mean Corpuscular Volume 116 fL (80-97); Mean Platelet Volume 7.7 fL (7.4-10.4); Platelet Count 234 10^3/uL (150-450); Red Blood Count 2.13 10^6 /uL (3.70-4.87); Red Cell Distribution Width 21 % (10-15); White Blood Count 14.9 10^3/uL (3.5-10.8)
[2021-07-17 06:30] LABS: Calcium 8.5 mg/dL (8.6-10.3); Potassium 3.3 mmol/L (3.5-5.0); eGFR CKD-EPI 87.7 (>60)
[2021-07-17 06:40] LABS: Magnesium 2.4 mg/dL (1.9-2.7)
[2021-07-17 06:48] LABS: Direct Bilirubin 21.1 mg/dL (0.03-0.18); Indirect Bilirubin 15.3 mg/dL (0.3-1.0); Total Bilirubin 36.4 mg/dL (0.2-1.0)
[2021-07-17] MEDS: Lactulose 30 ml UDC PO SCH ×3 (09:04→22:50)
[2021-07-17] MEDS: Multivitamins/Minerals TAB PO SCH (09:07)
[2021-07-17] MEDS: Potassium Chloride LIQUID 20 MEQ/15 ML LIQUID PO SCH ×2 (09:10→22:15)
[2021-07-17] MEDS: Cefepime 2 GM in Dextrose 2 GM/50 ML BAG IV SCH ×2 (09:11→22:13)
[2021-07-17] MEDS: Heparin 5000 UNITS/ML 1 mL VIAL SUBCUT SCH ×2 (09:11→22:11)
[2021-07-17] MEDS: KCL 10 MEQ/50 ML IVPREMIX 10 MEQ/50 ML BAG IV SCH ×5 (09:11→22:13)
[2021-07-17] MEDS: Pantoprazole VIAL 40 MG VIAL IV SCH ×2 (09:12→22:15)
[2021-07-17] MEDS: Lidocaine PATCH 5% PATCH TRANSDERM SCH (09:21)
[2021-07-17] MEDS ORDERED: Vancomycin Trough Check NOTE FOLLOW UP ONE (12:30)
[2021-07-18 05:35] LABS: INR 1.76 (0.86-1.15)
[2021-07-18 05:46] LABS: ABS Basophils 0.1 10^3/ul (0-0.2); ABS Eosinophils 0.2 10^3/ul (0-0.6); ABS Lymphocytes 0.9 10^3/ul (1.0-4.8); ABS Neutrophils 13.8 10^3/ul (1.5-7.7); Hematocrit 25 % (35-47); Hemoglobin 8.1 g/dL (12.0-16.0); Lymphocyte % 5.6 %; Mean Corpuscular HGB Conc 32 g/dL (31-36); Mean Corpuscular Hemoglobin 38 pg (27-31); Mean Corpuscular Volume 116 fL (80-97); Platelet Count 234 10^3/uL (150-450); Red Blood Count 2.15 10^6 /uL (3.70-4.87); Red Cell Distribution Width 21 % (10-15); White Blood Count 15.9 10^3/uL (3.5-10.8)
[2021-07-18 06:06] LABS: Albumin 2.9 g/dL (3.2-5.2); Albumin/Globulin Ratio 1.3 (1-3); Calcium 8.4 mg/dL (8.6-10.3); Globulin 2.2 g/dL (2-4); HDL Cholesterol 4.4 mg/dL; Potassium 3.5 mmol/L (3.5-5.0); Total Protein 5.1 g/dL (6.4-8.9); eGFR CKD-EPI 91.5 (>60)
[2021-07-18 06:25] LABS: Ferritin 214.9 ng/mL (11-307)
[2021-07-18 06:32] LABS: Direct Bilirubin 20.1 mg/dL (0.03-0.18); Indirect Bilirubin 14.2 mg/dL (0.3-1.0); Magnesium 2.2 mg/dL (1.9-2.7); Total Bilirubin 34.3 mg/dL (0.2-1.0)
[2021-07-18] MEDS: KCL 10 MEQ/50 ML IVPREMIX 10 MEQ/50 ML BAG IV SCH ×3 (09:20→12:25)
[2021-07-18] MEDS: Potassium Chloride LIQUID 20 MEQ/15 ML LIQUID PO SCH ×2 (09:38→20:36)
[2021-07-18] MEDS: Lactulose 30 ml UDC PO SCH (09:38)
[2021-07-18] MEDS: Heparin 5000 UNITS/ML 1 mL VIAL SUBCUT SCH ×2 (09:41→20:38)
[2021-07-18] MEDS: Multivitamins/Minerals TAB PO SCH (09:45)
[2021-07-18] MEDS: Pantoprazole VIAL 40 MG VIAL IV SCH (09:48)
[2021-07-18] MEDS: Lidocaine PATCH 5% PATCH TRANSDERM SCH (09:57)
[2021-07-18] MEDS: Cefepime 2 GM in Dextrose 2 GM/50 ML BAG IV SCH ×2 (10:04→20:36)
[2021-07-19] MEDS: Lactulose 30 ml UDC PO SCH ×3 (00:59→20:29)
[2021-07-19 05:48] LABS: INR 1.83 (0.86-1.15)
[2021-07-19 06:17] LABS: ABS Basophils 0.1 10^3/ul (0-0.2); ABS Eosinophils 0.1 10^3/ul (0-0.6); ABS Monocytes 0.9 10^3/ul (0-0.8); ABS Neutrophils 13.5 10^3/ul (1.5-7.7); Eosinophil % 0.9 %; Hematocrit 26 % (35-47); Hemoglobin 8.2 g/dL (12.0-16.0); Lymphocyte % 6.4 %; Mean Corpuscular HGB Conc 32 g/dL (31-36); Mean Corpuscular Hemoglobin 37 pg (27-31); Mean Corpuscular Volume 116 fL (80-97); Nucleated Red Blood Cells % 0.1; Platelet Count 255 10^3/uL (150-450); Red Blood Count 2.21 10^6 /uL (3.70-4.87); Red Cell Distribution Width 21 % (10-15); White Blood Count 15.7 10^3/uL (3.5-10.8)
[2021-07-19 06:22] LABS: Albumin 2.9 g/dL (3.2-5.2); Albumin/Globulin Ratio 1.3 (1-3); Calcium 8.3 mg/dL (8.6-10.3); Globulin 2.2 g/dL (2-4); Potassium 3.5 mmol/L (3.5-5.0); Total Protein 5.1 g/dL (6.4-8.9)
[2021-07-19 06:27] LABS: Magnesium 2.2 mg/dL (1.9-2.7)
[2021-07-19] MEDS: Cefepime 2 GM in Dextrose 2 GM/50 ML BAG IV SCH ×2 (08:54→20:33)
[2021-07-19] MEDS: KCL 10 MEQ/50 ML IVPREMIX 10 MEQ/50 ML BAG IV SCH ×3 (08:55→12:28)
[2021-07-19] MEDS: Lidocaine PATCH 5% PATCH TRANSDERM SCH (09:04)
[2021-07-19] MEDS: Heparin 5000 UNITS/ML 1 mL VIAL SUBCUT SCH ×2 (09:09→20:29)
[2021-07-19] MEDS: Potassium Chloride LIQUID 20 MEQ/15 ML LIQUID PO SCH ×2 (09:12→20:27)
[2021-07-19] MEDS: Multivitamins/Minerals TAB PO SCH (09:13)
[2021-07-20 06:27] LABS: Hematocrit 25 % (35-47); Hemoglobin 8.2 g/dL (12.0-16.0); Mean Corpuscular HGB Conc 33 g/dL (31-36); Mean Corpuscular Hemoglobin 38 pg (27-31); Mean Corpuscular Volume 115 fL (80-97); Mean Platelet Volume 8.1 fL (7.4-10.4); Platelet Count 256 10^3/uL (150-450); Red Blood Count 2.16 10^6 /uL (3.70-4.87); Red Cell Distribution Width 20 % (10-15)
[2021-07-20 06:32] LABS: ABS Basophils 0.1 10^3/ul (0-0.2); ABS Eosinophils 0.2 10^3/ul (0-0.6); ABS Lymphocytes 1.1 10^3/ul (1.0-4.8); ABS Monocytes 0.9 10^3/ul (0-0.8); ABS Neutrophils 13.7 10^3/ul (1.5-7.7); Lymphocyte % 6.7 %; Nucleated Red Blood Cells % 0.1
[2021-07-20 06:43] LABS: INR 1.85 (0.86-1.15)
[2021-07-20 06:53] LABS: Albumin 2.9 g/dL (3.2-5.2); Albumin/Globulin Ratio 1.3 (1-3); Calcium 8.4 mg/dL (8.6-10.3); Globulin 2.2 g/dL (2-4); Potassium 3.5 mmol/L (3.5-5.0); Total Protein 5.1 g/dL (6.4-8.9); eGFR CKD-EPI 111.8 (>60)
[2021-07-20 07:12] LABS: Magnesium 2.2 mg/dL (1.9-2.7); Total Bilirubin 31.9 mg/dL (0.2-1.0)
[2021-07-20] MEDS: Cefepime 2 GM in Dextrose 2 GM/50 ML BAG IV SCH ×2 (10:00→21:11)
[2021-07-20] MEDS: Potassium Chloride LIQUID 20 MEQ/15 ML LIQUID PO SCH ×2 (10:01→21:09)
[2021-07-20] MEDS: Multivitamins/Minerals TAB PO SCH (10:04)
[2021-07-20] MEDS: Lidocaine PATCH 5% PATCH TRANSDERM SCH (10:05)
[2021-07-20] MEDS: Heparin 5000 UNITS/ML 1 mL VIAL SUBCUT SCH ×2 (10:07→21:10)
[2021-07-20] MEDS: Lactulose 30 ml UDC PO SCH ×2 (10:07→21:11)
[2021-07-20 12:36] LABS: C Reactive Protein 70.61 mg/L (<8.01)
[2021-07-20] MEDS: Al Hydrox/Mg Hydrox/Simet LIQ 30 ML UDC PO PRN (17:27)
[2021-07-20] MEDS ORDERED: Lidocaine PATCH 5% PATCH TRANSDERM ONE (21:00)
[2021-07-20] MEDS: Nystatin TOP POWDER 15 GM BTL TOPICAL SCH (21:10)
[2021-07-21 04:54] LABS: ABS Basophils 0.2 10^3/ul (0-0.2); ABS Eosinophils 0.1 10^3/ul (0-0.6); ABS Lymphocytes 0.9 10^3/ul (1.0-4.8); ABS Monocytes 0.9 10^3/ul (0-0.8); ABS Neutrophils 12.1 10^3/ul (1.5-7.7); Eosinophil % 0.7 %; Hematocrit 26 % (35-47); Hemoglobin 8.3 g/dL (12.0-16.0); Lymphocyte % 6.5 %; Mean Corpuscular HGB Conc 33 g/dL (31-36); Mean Corpuscular Hemoglobin 38 pg (27-31); Mean Corpuscular Volume 115 fL (80-97); Platelet Count 288 10^3/uL (150-450); Red Blood Count 2.22 10^6 /uL (3.70-4.87); Red Cell Distribution Width 20 % (10-15); White Blood Count 14.2 10^3/uL (3.5-10.8)
[2021-07-21 04:57] LABS: INR 1.89 (0.86-1.15)
[2021-07-21 05:22] LABS: Albumin 2.9 g/dL (3.2-5.2); Albumin/Globulin Ratio 1.3 (1-3); Calcium 8.2 mg/dL (8.6-10.3); Globulin 2.3 g/dL (2-4); Potassium 3.4 mmol/L (3.5-5.0); Total Protein 5.2 g/dL (6.4-8.9); eGFR CKD-EPI 110.7 (>60)
[2021-07-21 05:29] LABS: Magnesium 2.1 mg/dL (1.9-2.7); Total Bilirubin 29.9 mg/dL (0.2-1.0)
[2021-07-21] MEDS ORDERED: Potassium Chlor 20 meq TAB.ER PO ONE (06:55)
[2021-07-21] MEDS: KCL 10 MEQ/50 ML IVPREMIX 10 MEQ/50 ML BAG IV SCH ×2 (08:03→10:26)
[2021-07-21] MEDS: Multivitamins/Minerals TAB PO SCH (08:04)
[2021-07-21] MEDS: Lidocaine PATCH 5% PATCH TRANSDERM SCH ×2 (08:05→14:59)
[2021-07-21] MEDS: Cefepime 2 GM in Dextrose 2 GM/50 ML BAG IV SCH ×2 (08:05→20:06)
[2021-07-21] MEDS: Heparin 5000 UNITS/ML 1 mL VIAL SUBCUT SCH ×2 (08:07→20:06)
[2021-07-21] MEDS: Nystatin TOP POWDER 15 GM BTL TOPICAL SCH ×2 (08:08→20:08)
[2021-07-21] MEDS: Lactulose 30 ml UDC PO SCH ×2 (08:09→21:44)
[2021-07-21] MEDS: Potassium Chloride LIQUID 20 MEQ/15 ML LIQUID PO SCH ×2 (08:09→20:06)
[2021-07-21] MEDS ORDERED: Acetaminophen IV 1 GM/100ML 100 ML IV ONE (14:34)
[2021-07-22 06:05] LABS: INR 1.94 (0.86-1.15)
[2021-07-22 06:07] LABS: ABS Basophils 0.1 10^3/ul (0-0.2); ABS Eosinophils 0.1 10^3/ul (0-0.6); ABS Lymphocytes 1.1 10^3/ul (1.0-4.8); ABS Monocytes 0.7 10^3/ul (0-0.8); ABS Neutrophils 10.6 10^3/ul (1.5-7.7); Eosinophil % 1.1 %; Hematocrit 27 % (35-47); Hemoglobin 8.4 g/dL (12.0-16.0); Lymphocyte % 8.8 %; Mean Corpuscular HGB Conc 32 g/dL (31-36); Mean Corpuscular Hemoglobin 37 pg (27-31); Mean Corpuscular Volume 116 fL (80-97); Mean Platelet Volume 7.9 fL (7.4-10.4); Platelet Count 300 10^3/uL (150-450); Red Blood Count 2.28 10^6 /uL (3.70-4.87); Red Cell Distribution Width 21 % (10-15); White Blood Count 12.8 10^3/uL (3.5-10.8)
[2021-07-22 06:39] LABS: Albumin/Globulin Ratio 1.4 (1-3); Calcium 8.6 mg/dL (8.6-10.3); Globulin 2.2 g/dL (2-4); Potassium 4.2 mmol/L (3.5-5.0); Total Protein 5.2 g/dL (6.4-8.9); eGFR CKD-EPI 111.4 (>60)
[2021-07-22 06:48] LABS: Magnesium 2.1 mg/dL (1.9-2.7); Total Bilirubin 27.8 mg/dL (0.2-1.0)
[2021-07-22] MEDS: Heparin 5000 UNITS/ML 1 mL VIAL SUBCUT SCH ×2 (09:06→20:20)
[2021-07-22] MEDS: Multivitamins/Minerals TAB PO SCH (09:06)
[2021-07-22] MEDS: Potassium Chloride LIQUID 20 MEQ/15 ML LIQUID PO SCH ×2 (09:06→20:20)
[2021-07-22] MEDS: Lidocaine PATCH 5% PATCH TRANSDERM SCH ×2 (09:07→09:08)
[2021-07-22] MEDS: Lactulose 30 ml UDC PO SCH ×2 (09:07→22:19)
[2021-07-22] MEDS: Nystatin TOP POWDER 15 GM BTL TOPICAL SCH ×2 (09:09→22:24)
[2021-07-22] MEDS ORDERED: Phytonadione IV (Adult) 10 MG in NS 0.9% 50 ML 50 ML IV ONE (09:18)
[2021-07-22] MEDS: Cefepime 2 GM in Dextrose 2 GM/50 ML BAG IV SCH ×2 (09:22→20:20)
[2021-07-22] MEDS ORDERED: Phytonadione Oral Solution 5 MG/25 ML UDC PO ONE (09:39)
[2021-07-23 05:53] LABS: INR 1.84 (0.86-1.15)
[2021-07-23 05:58] LABS: ABS Basophils 0.2 10^3/ul (0-0.2); ABS Eosinophils 0.1 10^3/ul (0-0.6); ABS Lymphocytes 0.9 10^3/ul (1.0-4.8); ABS Monocytes 0.8 10^3/ul (0-0.8); ABS Neutrophils 10.1 10^3/ul (1.5-7.7); Eosinophil % 0.9 %; Hematocrit 26 % (35-47); Hemoglobin 8.2 g/dL (12.0-16.0); Lymphocyte % 7.6 %; Mean Corpuscular HGB Conc 32 g/dL (31-36); Mean Corpuscular Hemoglobin 37 pg (27-31); Mean Corpuscular Volume 116 fL (80-97); Mean Platelet Volume 7.8 fL (7.4-10.4); Platelet Count 298 10^3/uL (150-450); Red Blood Count 2.21 10^6 /uL (3.70-4.87); Red Cell Distribution Width 20 % (10-15); White Blood Count 12.2 10^3/uL (3.5-10.8)
[2021-07-23 06:26] LABS: Albumin/Globulin Ratio 1.3 (1-3); Calcium 8.6 mg/dL (8.6-10.3); Globulin 2.3 g/dL (2-4); Total Protein 5.3 g/dL (6.4-8.9); eGFR CKD-EPI 114.4 (>60)
[2021-07-23 06:32] LABS: Total Bilirubin 25.2 mg/dL (0.2-1.0)
[2021-07-23] MEDS: Cefepime 2 GM in Dextrose 2 GM/50 ML BAG IV SCH ×2 (09:33→20:39)
[2021-07-23] MEDS: Multivitamins/Minerals TAB PO SCH (09:46)
[2021-07-23] MEDS: Heparin 5000 UNITS/ML 1 mL VIAL SUBCUT SCH ×2 (09:49→20:40)
[2021-07-23] MEDS: Lactulose 30 ml UDC PO SCH ×2 (09:52→21:53)
[2021-07-23] MEDS: Lidocaine PATCH 5% PATCH TRANSDERM SCH ×2 (09:55→09:57)
[2021-07-23] MEDS: Potassium Chloride LIQUID 20 MEQ/15 ML LIQUID PO SCH ×2 (10:11→20:40)
[2021-07-23] MEDS: Nystatin TOP POWDER 15 GM BTL TOPICAL SCH ×2 (10:34→22:45)
[2021-07-24 05:49] LABS: ABS Basophils 0.2 10^3/ul (0-0.2); ABS Eosinophils 0.1 10^3/ul (0-0.6); ABS Lymphocytes 0.9 10^3/ul (1.0-4.8); ABS Monocytes 0.7 10^3/ul (0-0.8); ABS Neutrophils 8.7 10^3/ul (1.5-7.7); Eosinophil % 0.8 %; Hematocrit 26 % (35-47); Hemoglobin 8.4 g/dL (12.0-16.0); INR 1.86 (0.86-1.15); Lymphocyte % 8.2 %; Mean Corpuscular HGB Conc 32 g/dL (31-36); Mean Corpuscular Hemoglobin 38 pg (27-31); Mean Corpuscular Volume 117 fL (80-97); Mean Platelet Volume 7.7 fL (7.4-10.4); Nucleated Red Blood Cells % 0.1; Platelet Count 293 10^3/uL (150-450); Red Blood Count 2.24 10^6 /uL (3.70-4.87); Red Cell Distribution Width 20 % (10-15); White Blood Count 10.5 10^3/uL (3.5-10.8)
[2021-07-24 06:20] LABS: Albumin/Globulin Ratio 1.4 (1-3); Calcium 8.8 mg/dL (8.6-10.3); Globulin 2.2 g/dL (2-4); Potassium 3.8 mmol/L (3.5-5.0); Total Protein 5.2 g/dL (6.4-8.9); eGFR CKD-EPI 115.8 (>60)
[2021-07-24 06:25] LABS: Magnesium 1.9 mg/dL (1.9-2.7); Total Bilirubin 23.1 mg/dL (0.2-1.0)
[2021-07-24] MEDS ORDERED: Potassium Chlor 20 meq TAB.ER PO ONE (07:16)
[2021-07-24] MEDS ORDERED: Iodixanol (CONTRAST) 320 MG/ML 100 ML SDV IV ONE (10:54)
[2021-07-24] MEDS: Cefepime 2 GM in Dextrose 2 GM/50 ML BAG IV SCH ×2 (11:02→19:55)
[2021-07-24] MEDS: Lidocaine PATCH 5% PATCH TRANSDERM SCH ×2 (11:04→11:05)
[2021-07-24] MEDS: Heparin 5000 UNITS/ML 1 mL VIAL SUBCUT SCH ×2 (11:05→20:00)
[2021-07-24] MEDS: Multivitamins/Minerals TAB PO SCH (11:06)
[2021-07-24] MEDS: Potassium Chloride LIQUID 20 MEQ/15 ML LIQUID PO SCH ×2 (11:11→20:00)
[2021-07-24] MEDS: Lactulose 30 ml UDC PO SCH ×2 (11:11→11:14)
[2021-07-24] MEDS: Nystatin TOP POWDER 15 GM BTL TOPICAL SCH ×2 (11:22→20:02)
[2021-07-24 11:26] LABS: Lithium 0.35 mmol/L (0.6-1.2)
[2021-07-25] MEDS: Lactulose 30 ml UDC PO SCH ×3 (00:29→09:05)
[2021-07-25 05:35] LABS: ABS Basophils 0.1 10^3/ul (0-0.2); ABS Eosinophils 0.1 10^3/ul (0-0.6); ABS Lymphocytes 0.9 10^3/ul (1.0-4.8); ABS Monocytes 0.9 10^3/ul (0-0.8); ABS Neutrophils 9.9 10^3/ul (1.5-7.7); Hematocrit 26 % (35-47); Hemoglobin 8.1 g/dL (12.0-16.0); Lymphocyte % 7.3 %; Mean Corpuscular HGB Conc 32 g/dL (31-36); Mean Corpuscular Hemoglobin 36 pg (27-31); Mean Corpuscular Volume 115 fL (80-97); Mean Platelet Volume 7.6 fL (7.4-10.4); Nucleated Red Blood Cells % 0.1; Platelet Count 291 10^3/uL (150-450); Red Blood Count 2.24 10^6 /uL (3.70-4.87); Red Cell Distribution Width 19 % (10-15)
[2021-07-25 05:58] LABS: INR 1.91 (0.86-1.15)
[2021-07-25 06:16] LABS: Albumin/Globulin Ratio 1.2 (1-3); Calcium 8.8 mg/dL (8.6-10.3); Globulin 2.5 g/dL (2-4); Potassium 4.3 mmol/L (3.5-5.0); Total Protein 5.5 g/dL (6.4-8.9); eGFR CKD-EPI 114.4 (>60)
[2021-07-25 06:23] LABS: Magnesium 1.9 mg/dL (1.9-2.7); Total Bilirubin 22.4 mg/dL (0.2-1.0)
[2021-07-25] MEDS: Lidocaine PATCH 5% PATCH TRANSDERM SCH ×2 (08:23→08:24)
[2021-07-25] MEDS: Potassium Chloride LIQUID 20 MEQ/15 ML LIQUID PO SCH ×2 (08:24→23:01)
[2021-07-25] MEDS: Cefepime 2 GM in Dextrose 2 GM/50 ML BAG IV SCH ×2 (08:26→20:54)
[2021-07-25] MEDS: Multivitamins/Minerals TAB PO SCH (08:26)
[2021-07-25] MEDS: Heparin 5000 UNITS/ML 1 mL VIAL SUBCUT SCH ×2 (08:26→23:02)
[2021-07-25] MEDS: Nystatin TOP POWDER 15 GM BTL TOPICAL SCH (09:05)
[2021-07-25] MEDS: Ondansetron 4 mg VIAL 2 MG/ML 2 ml VIAL IV PRN ×2 (09:49→20:54)
[2021-07-25] MEDS: Al Hydrox/Mg Hydrox/Simet LIQ 30 ML UDC PO PRN (09:49)
[2021-07-26] MEDS: Lactulose 30 ml UDC PO SCH ×3 (00:41→21:40)
[2021-07-26] MEDS: Nystatin TOP POWDER 15 GM BTL TOPICAL SCH ×3 (00:42→21:40)
[2021-07-26] MEDS: Al Hydrox/Mg Hydrox/Simet LIQ 30 ML UDC PO PRN ×3 (03:30→20:25)
[2021-07-26 05:34] LABS: INR 1.98 (0.86-1.15)
[2021-07-26 05:36] LABS: ABS Basophils 0.2 10^3/ul (0-0.2); ABS Eosinophils 0.1 10^3/ul (0-0.6); ABS Lymphocytes 0.9 10^3/ul (1.0-4.8); ABS Monocytes 0.9 10^3/ul (0-0.8); ABS Neutrophils 9.4 10^3/ul (1.5-7.7); Eosinophil % 0.9 %; Hematocrit 25 % (35-47); Hemoglobin 8.2 g/dL (12.0-16.0); Lymphocyte % 7.8 %; Mean Corpuscular HGB Conc 33 g/dL (31-36); Mean Corpuscular Hemoglobin 37 pg (27-31); Mean Corpuscular Volume 114 fL (80-97); Mean Platelet Volume 7.7 fL (7.4-10.4); Platelet Count 270 10^3/uL (150-450); Red Cell Distribution Width 18 % (10-15); White Blood Count 11.5 10^3/uL (3.5-10.8)
[2021-07-26 05:53] LABS: Albumin/Globulin Ratio 1.4 (1-3); Calcium 8.9 mg/dL (8.6-10.3); Globulin 2.2 g/dL (2-4); Potassium 4.3 mmol/L (3.5-5.0); Total Protein 5.2 g/dL (6.4-8.9); eGFR CKD-EPI 112.7 (>60)
[2021-07-26 05:54] LABS: Lithium 1.16 mmol/L (0.6-1.2)
[2021-07-26 06:03] LABS: Magnesium 1.9 mg/dL (1.9-2.7); Total Bilirubin 22.1 mg/dL (0.2-1.0)
[2021-07-26] MEDS: Ondansetron 4 mg VIAL 2 MG/ML 2 ml VIAL IV PRN ×2 (06:31→15:51)
[2021-07-26] MEDS: Cefepime 2 GM in Dextrose 2 GM/50 ML BAG IV SCH ×2 (07:38→20:25)
[2021-07-26] MEDS: Heparin 5000 UNITS/ML 1 mL VIAL SUBCUT SCH ×2 (08:32→20:25)
[2021-07-26] MEDS: Potassium Chloride LIQUID 20 MEQ/15 ML LIQUID PO SCH ×2 (08:33→21:39)
[2021-07-26] MEDS: Lidocaine PATCH 5% PATCH TRANSDERM SCH ×2 (08:34)
[2021-07-26] MEDS: Multivitamins/Minerals TAB PO SCH (08:34)
[2021-07-26] MEDS ORDERED: Phytonadione Oral Solution 5 MG/25 ML UDC PO ONE (10:31)
[2021-07-27 05:35] LABS: ABS Basophils 0.1 10^3/ul (0-0.2); ABS Eosinophils 0.1 10^3/ul (0-0.6); ABS Lymphocytes 0.7 10^3/ul (1.0-4.8); ABS Monocytes 0.8 10^3/ul (0-0.8); ABS Neutrophils 10.7 10^3/ul (1.5-7.7); Eosinophil % 1.1 %; Hematocrit 24 % (35-47); Mean Corpuscular HGB Conc 33 g/dL (31-36); Mean Corpuscular Hemoglobin 37 pg (27-31); Mean Corpuscular Volume 113 fL (80-97); Mean Platelet Volume 7.5 fL (7.4-10.4); Platelet Count 258 10^3/uL (150-450); Red Blood Count 2.16 10^6 /uL (3.70-4.87); Red Cell Distribution Width 18 % (10-15); White Blood Count 12.5 10^3/uL (3.5-10.8)
[2021-07-27 05:37] LABS: INR 1.84 (0.86-1.15)
[2021-07-27 06:13] LABS: Albumin/Globulin Ratio 1.3 (1-3); Calcium 8.9 mg/dL (8.6-10.3); Globulin 2.4 g/dL (2-4); Potassium 4.8 mmol/L (3.5-5.0); Total Protein 5.4 g/dL (6.4-8.9)
[2021-07-27 06:18] LABS: Magnesium 1.9 mg/dL (1.9-2.7); Total Bilirubin 21.7 mg/dL (0.2-1.0)
[2021-07-27] MEDS: Ondansetron 4 mg VIAL 2 MG/ML 2 ml VIAL IV PRN (07:34)
[2021-07-27] MEDS: Multivitamins/Minerals TAB PO SCH (09:16)
[2021-07-27] MEDS: Potassium Chloride LIQUID 20 MEQ/15 ML LIQUID PO SCH ×2 (09:19→20:04)
[2021-07-27] MEDS: Lactulose 30 ml UDC PO SCH ×2 (09:19→20:05)
[2021-07-27] MEDS: Heparin 5000 UNITS/ML 1 mL VIAL SUBCUT SCH ×2 (09:25→20:05)
[2021-07-27] MEDS: Lidocaine PATCH 5% PATCH TRANSDERM SCH ×2 (09:25→09:26)
[2021-07-27] MEDS: Cefepime 2 GM in Dextrose 2 GM/50 ML BAG IV SCH ×2 (09:36→20:04)
[2021-07-27] MEDS: Nystatin TOP POWDER 15 GM BTL TOPICAL SCH ×2 (09:36→20:06)
[2021-07-27] MEDS ORDERED: Furosemide 40 mg/4 ml IV VIAL IV ONE (15:00)
[2021-07-27] MEDS: Al Hydrox/Mg Hydrox/Simet LIQ 30 ML UDC PO PRN (18:27)
[2021-07-28] MEDS ORDERED: Lidocaine 4% GEL 10 GM TUBE TOPICAL ONE (02:02)
[2021-07-28 07:52] LABS: ABS Basophils 0.1 10^3/ul (0-0.2); ABS Eosinophils 0.2 10^3/ul (0-0.6); ABS Lymphocytes 0.8 10^3/ul (1.0-4.8); ABS Monocytes 0.9 10^3/ul (0-0.8); ABS Neutrophils 10.7 10^3/ul (1.5-7.7); Eosinophil % 1.2 %; Hematocrit 24 % (35-47); Hemoglobin 7.8 g/dL (12.0-16.0); Lymphocyte % 6.4 %; Mean Corpuscular HGB Conc 33 g/dL (31-36); Mean Corpuscular Hemoglobin 37 pg (27-31); Mean Corpuscular Volume 114 fL (80-97); Mean Platelet Volume 7.7 fL (7.4-10.4); Platelet Count 240 10^3/uL (150-450); Red Blood Count 2.08 10^6 /uL (3.70-4.87); Red Cell Distribution Width 18 % (10-15); White Blood Count 12.6 10^3/uL (3.5-10.8)
[2021-07-28] MEDS: Al Hydrox/Mg Hydrox/Simet LIQ 30 ML UDC PO PRN ×2 (08:08→16:10)
[2021-07-28] MEDS: Lidocaine PATCH 5% PATCH TRANSDERM SCH ×2 (08:09→10:23)
[2021-07-28] MEDS: Potassium Chloride LIQUID 20 MEQ/15 ML LIQUID PO SCH (08:09)
[2021-07-28] MEDS: Cefepime 2 GM in Dextrose 2 GM/50 ML BAG IV SCH ×2 (08:09→20:34)
[2021-07-28] MEDS: Multivitamins/Minerals TAB PO SCH (08:10)
[2021-07-28] MEDS: Heparin 5000 UNITS/ML 1 mL VIAL SUBCUT SCH ×2 (08:11→20:35)
[2021-07-28 08:15] LABS: INR 1.78 (0.86-1.15)
[2021-07-28] MEDS: Lactulose 30 ml UDC PO SCH ×3 (08:15→20:35)
[2021-07-28 08:32] LABS: Albumin 3.1 g/dL (3.2-5.2); Albumin/Globulin Ratio 1.3 (1-3); Globulin 2.4 g/dL (2-4); Total Protein 5.5 g/dL (6.4-8.9); eGFR CKD-EPI 63.6 (>60)
[2021-07-28 08:49] LABS: Total Bilirubin 21.3 mg/dL (0.2-1.0)
[2021-07-28 09:05] LABS: Potassium 5.3 mmol/L (3.5-5.0)
[2021-07-28] MEDS ORDERED: Albumin Human 25% 25 GM/100 ML BTL IV ONE (09:49)
[2021-07-28] MEDS ORDERED: Furosemide 40 mg/4 ml IV VIAL IV ONE (10:00)
[2021-07-28] MEDS: Nystatin TOP POWDER 15 GM BTL TOPICAL SCH ×2 (10:23→21:10)
[2021-07-28 10:57] LABS: Magnesium 2.1 mg/dL (1.9-2.7)
[2021-07-28] MEDS ORDERED: Lactulose 30 ml UDC PO SCH (14:00)
[2021-07-28 14:44] LABS: Calcium 9.1 mg/dL (8.6-10.3); eGFR CKD-EPI 53.6 (>60)
[2021-07-28] MEDS ORDERED: SODIUM ZIRCONIUM CYCLOSILICATE 10 GM PACKET PO ONE (15:04)
[2021-07-28 15:16] LABS: Magnesium 2.1 mg/dL (1.9-2.7); Potassium 5.1 mmol/L (3.5-5.0)
[2021-07-28] MEDS: Lidocaine 4% GEL 10 GM TUBE TOPICAL SCH (15:21)
[2021-07-28] MEDS: Ondansetron 4 mg VIAL 2 MG/ML 2 ml VIAL IV PRN (16:10)
[2021-07-28] MEDS: Albumin Human 25% 25 GM/100 ML BTL IV SCH ×3 (16:15→21:05)
[2021-07-29 04:53] LABS: ABS Basophils 0.2 10^3/ul (0-0.2); ABS Eosinophils 0.1 10^3/ul (0-0.6); ABS Lymphocytes 0.9 10^3/ul (1.0-4.8); ABS Monocytes 0.8 10^3/ul (0-0.8); ABS Neutrophils 9.9 10^3/ul (1.5-7.7); Eosinophil % 0.8 %; Hematocrit 24 % (35-47); Hemoglobin 7.9 g/dL (12.0-16.0); Lymphocyte % 7.6 %; Mean Corpuscular HGB Conc 33 g/dL (31-36); Mean Corpuscular Hemoglobin 37 pg (27-31); Mean Corpuscular Volume 114 fL (80-97); Platelet Count 234 10^3/uL (150-450); Red Blood Count 2.11 10^6 /uL (3.70-4.87); Red Cell Distribution Width 18 % (10-15); White Blood Count 11.9 10^3/uL (3.5-10.8)
[2021-07-29 04:58] LABS: INR 1.9 (0.86-1.15)
[2021-07-29 05:20] LABS: Albumin 3.8 g/dL (3.2-5.2); Albumin/Globulin Ratio 1.9 (1-3); Calcium 9.5 mg/dL (8.6-10.3); Potassium 4.9 mmol/L (3.5-5.0); Total Protein 5.8 g/dL (6.4-8.9)
[2021-07-29 05:23] LABS: Magnesium 2.3 mg/dL (1.9-2.7)
[2021-07-29 05:38] LABS: Lithium 1.72 mmol/L (0.6-1.2); Total Bilirubin 20.9 mg/dL (0.2-1.0)
[2021-07-29] MEDS: Cefepime 2 GM in Dextrose 2 GM/50 ML BAG IV SCH (08:32)
[2021-07-29] MEDS: Lidocaine PATCH 5% PATCH TRANSDERM SCH ×2 (08:41→08:43)
[2021-07-29] MEDS: Lactulose 30 ml UDC PO SCH ×3 (08:41→21:25)
[2021-07-29] MEDS: Lidocaine 4% GEL 10 GM TUBE TOPICAL SCH (08:41)
[2021-07-29] MEDS: Multivitamins/Minerals TAB PO SCH (08:43)
[2021-07-29] MEDS: Heparin 5000 UNITS/ML 1 mL VIAL SUBCUT SCH ×2 (08:46→21:25)
[2021-07-29] MEDS: Nystatin TOP POWDER 15 GM BTL TOPICAL SCH ×2 (08:48→21:25)
[2021-07-29] MEDS: Albumin Human 25% 25 GM/100 ML BTL IV SCH ×4 (09:01→15:30)
[2021-07-29 16:23] LABS: Rapid COVID-19 Molecular Undetected (Undetected)
[2021-07-29] MEDS: Al Hydrox/Mg Hydrox/Simet LIQ 30 ML UDC PO PRN (21:25)
[2021-07-30 06:11] LABS: ABS Basophils 0.2 10^3/ul (0-0.2); ABS Eosinophils 0.1 10^3/ul (0-0.6); ABS Monocytes 0.9 10^3/ul (0-0.8); ABS Neutrophils 9.9 10^3/ul (1.5-7.7); Eosinophil % 0.8 %; Hematocrit 22 % (35-47); Lymphocyte % 8.1 %; Mean Corpuscular HGB Conc 32 g/dL (31-36); Mean Corpuscular Hemoglobin 36 pg (27-31); Mean Corpuscular Volume 113 fL (80-97); Mean Platelet Volume 8.1 fL (7.4-10.4); Platelet Count 207 10^3/uL (150-450); Red Blood Count 1.91 10^6 /uL (3.70-4.87); Red Cell Distribution Width 17 % (10-15)
[2021-07-30 06:22] LABS: Calcium 9.6 mg/dL (8.6-10.3); Potassium 4.7 mmol/L (3.5-5.0); eGFR CKD-EPI 31.4 (>60)
[2021-07-30 06:43] LABS: Lithium 1.69 mmol/L (0.6-1.2); Total Bilirubin 19.9 mg/dL (0.2-1.0)
[2021-07-30] MEDS: Albumin Human 25% 25 GM/100 ML BTL IV SCH ×5 (07:45→17:16)
[2021-07-30] MEDS: Lidocaine PATCH 5% PATCH TRANSDERM SCH ×2 (09:19)
[2021-07-30] MEDS: Lidocaine 4% GEL 10 GM TUBE TOPICAL SCH (09:38)
[2021-07-30] MEDS: Multivitamins/Minerals TAB PO SCH (09:38)
[2021-07-30] MEDS: Nystatin TOP POWDER 15 GM BTL TOPICAL SCH ×2 (09:40→22:16)
[2021-07-30] MEDS: Lactulose 30 ml UDC PO SCH ×4 (09:40→22:30)
[2021-07-30] MEDS: Heparin 5000 UNITS/ML 1 mL VIAL SUBCUT SCH ×2 (09:40→22:13)
[2021-07-30 14:14] LABS: Hematocrit 23 % (35-47); Hemoglobin 7.3 g/dL (12.0-16.0)
[2021-07-30] MEDS ORDERED: diPHENhydraMINE 25 mg TAB PO ONE (14:57)
[2021-07-30] MEDS: Al Hydrox/Mg Hydrox/Simet LIQ 30 ML UDC PO PRN (22:15)
[2021-07-30] MEDS: Pantoprazole VIAL 40 MG VIAL IV SCH (22:15)
[2021-07-30 23:02] LABS: Urine Appearance Cloudy; Urine Bilirubin 1+ (Negative); Urine Blood 3+ (Negative); Urine Color Amber; Urine Glucose Negative (Negative); Urine Ketones Trace (Negative); Urine Nitrite Negative (Negative); Urine Protein 3+(>=500 mg/dL) (Negative); Urine Specific Gravity 1.024 (1.002-1.030); Urine Urobilinogen Negative (Negative)
[2021-07-30 23:07] LABS: Urine Bacteria 1+ (Absent); Urine Red Blood Cell 3+(>10/hpf) (Absent); Urine Squamous Epithelial Cell Present (Absent); Urine White Blood Cell 3+(>20/hpf) (Absent); Urine Yeast Present (Absent)
[2021-07-31 07:28] LABS: ABS Basophils 0.1 10^3/ul (0-0.2); ABS Eosinophils 0.1 10^3/ul (0-0.6); ABS Lymphocytes 0.9 10^3/ul (1.0-4.8); ABS Monocytes 0.9 10^3/ul (0-0.8); ABS Neutrophils 10.6 10^3/ul (1.5-7.7); Eosinophil % 1.1 %; Hematocrit 22 % (35-47); Hemoglobin 7.2 g/dL (12.0-16.0); Lymphocyte % 7.2 %; Mean Corpuscular HGB Conc 33 g/dL (31-36); Mean Corpuscular Hemoglobin 37 pg (27-31); Mean Corpuscular Volume 114 fL (80-97); Mean Platelet Volume 8.4 fL (7.4-10.4); Platelet Count 215 10^3/uL (150-450); Red Blood Count 1.93 10^6 /uL (3.70-4.87); Red Cell Distribution Width 17 % (10-15); White Blood Count 12.6 10^3/uL (3.5-10.8)
[2021-07-31 07:35] LABS: INR 1.92 (0.86-1.15)
[2021-07-31 07:48] LABS: ALT 27 U/L (7-52); Albumin 4.5 g/dL (3.2-5.2); Albumin/Globulin Ratio 2.5 (1-3); Alkaline Phosphatase 140 U/L (35-149); Blood Urea Nitrogen 21 mg/dL (6-24); CO2 Carbon Dioxide 19 mmol/L (22-32); Calcium 9.9 mg/dL (8.6-10.3); Chloride 94 mmol/L (101-111); Globulin 1.8 g/dL (2-4); Glucose 108 mg/dL (70-100); Sodium 122 mmol/L (135-145); Total Protein 6.3 g/dL (6.4-8.9); eGFR CKD-EPI 22.9 (>60)
[2021-07-31 07:52] LABS: Anion Gap 9 mmol/L (2-11)
[2021-07-31 08:56] LABS: Potassium Redraw 4.6 mmol/L (3.5-5.0)
[2021-07-31] MEDS ORDERED: Clindamycin 600 MG/D5W BAG 600 MG/50 ML BAG IV ONE ×2 (09:00→14:00)
[2021-07-31] MEDS: Pantoprazole VIAL 40 MG VIAL IV SCH ×2 (09:08→21:05)
[2021-07-31] MEDS: Lactulose 30 ml UDC PO SCH ×4 (09:08→22:01)
[2021-07-31] MEDS: Multivitamins/Minerals TAB PO SCH (09:12)
[2021-07-31] MEDS: Albumin Human 25% 25 GM/100 ML BTL IV SCH ×5 (09:16→21:00)
[2021-07-31] MEDS: Lidocaine PATCH 5% PATCH TRANSDERM SCH ×2 (09:21→09:26)
[2021-07-31] MEDS: Lidocaine 4% GEL 10 GM TUBE TOPICAL SCH (09:21)
[2021-07-31] MEDS: Nystatin TOP POWDER 15 GM BTL TOPICAL SCH ×2 (09:26→21:05)
[2021-07-31] MEDS: Ondansetron 4 mg VIAL 2 MG/ML 2 ml VIAL IV PRN ×2 (09:33→21:13)
[2021-07-31] MEDS: Al Hydrox/Mg Hydrox/Simet LIQ 30 ML UDC PO PRN (09:33)
[2021-07-31] MEDS ORDERED: Heparin *DIALYSIS* ONLY 1,000 UNITS/ML VIAL DIALYSIS SCH (12:00)
[2021-07-31 12:03] LABS: Direct Bilirubin 13.6 mg/dL (0.03-0.18)
[2021-07-31] MEDS ORDERED: Heparin 2 UNITS/ML IVPREMIX 1,000 UNIT/500 ML BAG IV ONE (13:40)
[2021-07-31] MEDS ORDERED: Lidocaine 1% MPF 5 ML VIAL ONE (13:40)
[2021-07-31] MEDS ORDERED: fentaNYL 100 mcg/2 ml 50 MCG/ML VIAL ONE (13:48)
[2021-07-31] MEDS ORDERED: Midazolam 5 mg/5 ml VIAL 1 mg/ml 5 ml VIAL (5 mg) ONE (13:48)
[2021-07-31 15:38] LABS: Hepatitis B Surface Antigen Nonreactive (Nonreactive)
[2021-07-31 15:55] LABS: Hepatitis B Surface Ab Immune (Immune)
[2021-07-31] MEDS: Heparin 1,000 UNIT/ML 10 ml (10,000 UNITS) CATHLAB/DIALYSIS DIALYSIS SCH (20:10)
[2021-08-01 06:03] LABS: INR 1.96 (0.86-1.15)
[2021-08-01 06:24] LABS: Albumin 5.1 g/dL (3.2-5.2); Globulin 1.7 g/dL (2-4); Potassium 4.1 mmol/L (3.5-5.0); Total Protein 6.8 g/dL (6.4-8.9); eGFR CKD-EPI 26.1 (>60)
[2021-08-01 06:29] LABS: Total Bilirubin 18.6 mg/dL (0.2-1.0)
[2021-08-01 06:44] LABS: ABS Basophils 0.1 10^3/ul (0-0.2); ABS Eosinophils 0.1 10^3/ul (0-0.6); ABS Lymphocytes 0.5 10^3/ul (1.0-4.8); ABS Neutrophils 13.2 10^3/ul (1.5-7.7); Eosinophil % 0.4 %; Hematocrit 22 % (35-47); Lymphocyte % 3.5 %; Mean Corpuscular HGB Conc 32 g/dL (31-36); Mean Corpuscular Hemoglobin 37 pg (27-31); Mean Corpuscular Volume 115 fL (80-97); Mean Platelet Volume 8.6 fL (7.4-10.4); Platelet Count 201 10^3/uL (150-450); Red Blood Count 1.93 10^6 /uL (3.70-4.87); Red Cell Distribution Width 17 % (10-15); White Blood Count 14.8 10^3/uL (3.5-10.8)
[2021-08-01] MEDS ORDERED: Piperacillin/Tazobac ADVAN 3.375 GM in NS 0.9% 100 ml BAG 100 ML IV ONE (08:30)
[2021-08-01] MEDS: Albumin Human 25% 25 GM/100 ML BTL IV SCH ×2 (08:31→10:40)
[2021-08-01] MEDS: Pantoprazole VIAL 40 MG VIAL IV SCH (08:40)
[2021-08-01] MEDS: Multivitamins/Minerals TAB PO SCH (08:43)
[2021-08-01] MEDS: Lactulose 30 ml UDC PO SCH ×3 (08:44→18:16)
[2021-08-01] MEDS: Lidocaine 4% GEL 10 GM TUBE TOPICAL SCH (08:44)
[2021-08-01] MEDS: Lidocaine PATCH 5% PATCH TRANSDERM SCH ×2 (08:44→10:02)
[2021-08-01] MEDS ORDERED: Zosyn per Pharmacy NOTE FOLLOW UP SCH (09:00)
[2021-08-01] MEDS: Ondansetron 4 mg VIAL 2 MG/ML 2 ml VIAL IV PRN (09:02)
[2021-08-01] MEDS: Nystatin TOP POWDER 15 GM BTL TOPICAL SCH (10:58)
[2021-08-01] MEDS: Linezolid 600 MG IVPREMIX(*) 600 MG/300 ML BAG IVPB SCH (12:13)
[2021-08-01 14:18] LABS: Hematocrit 21 % (35-47); Hemoglobin 6.7 g/dL (12.0-16.0)
[2021-08-01] MEDS: Heparin 1,000 UNIT/ML 10 ml (10,000 UNITS) CATHLAB/DIALYSIS DIALYSIS SCH (18:13)
[2021-08-01] MEDS: ZOSYN 3.375 GM Q8H per EXTENDED INFUSION IV SCH (18:20)
[2021-08-01 19:04] LABS: Body Fluid WBC 2033 /mcL
[2021-08-01 19:05] LABS: Body Fluid Appearance Cloudy; Body Fluid Color Amber; Body Fluid Source Peritonial Fluid
[2021-08-01 20:15] LABS: Body Fluid Mono 9 %; Body Fluid Other Cells 12; Body Fluid Total Cells Counted 200
[2021-08-01 22:00] LABS: PCO2 Arterial 40 mmHg (35-45)
[2021-08-01 22:06] LABS: PO2 Arterial 59 mmHg (80-100)
[2021-08-01 23:30] LABS: PCO2 Arterial 35 mmHg (35-45); PO2 Arterial 119 mmHg (80-100)
[2021-08-01] MEDS ORDERED: NS 0.9% 100 ml BAG 100 ML ONE (23:49)
[2021-08-02] MEDS: Pantoprazole VIAL 40 MG VIAL IV SCH ×3 (00:01→19:42)
[2021-08-02] MEDS: Lactulose 30 ml UDC PO SCH ×6 (00:01→15:18)
[2021-08-02] MEDS: Linezolid 600 MG IVPREMIX(*) 600 MG/300 ML BAG IVPB SCH ×3 (00:02→21:20)
[2021-08-02] MEDS: ZOSYN 3.375 GM Q8H per EXTENDED INFUSION IV SCH ×2 (00:02→10:57)
[2021-08-02] MEDS: Nystatin TOP POWDER 15 GM BTL TOPICAL SCH ×3 (02:15→21:26)
[2021-08-02 02:48] LABS: ABS Eosinophils 0.1 10^3/ul (0-0.6); ABS Lymphocytes 0.6 10^3/ul (1.0-4.8); ABS Monocytes 1.1 10^3/ul (0-0.8); ABS Neutrophils 12.5 10^3/ul (1.5-7.7); Eosinophil % 0.4 %; Hematocrit 22 % (35-47); Hemoglobin 7.1 g/dL (12.0-16.0); Lymphocyte % 4.4 %; Mean Corpuscular HGB Conc 32 g/dL (31-36); Mean Corpuscular Hemoglobin 36 pg (27-31); Mean Corpuscular Volume 111 fL (80-97); Mean Platelet Volume 8.9 fL (7.4-10.4); Platelet Count 190 10^3/uL (150-450); Red Blood Count 2.01 10^6 /uL (3.70-4.87); Red Cell Distribution Width 20 % (10-15); White Blood Count 14.3 10^3/uL (3.5-10.8)
[2021-08-02 02:58] LABS: Albumin 4.4 g/dL (3.2-5.2); Albumin/Globulin Ratio 2.9 (1-3); Calcium 9.2 mg/dL (8.6-10.3); Globulin 1.5 g/dL (2-4); Potassium 3.4 mmol/L (3.5-5.0); Total Protein 5.9 g/dL (6.4-8.9); eGFR CKD-EPI 27.6 (>60)
[2021-08-02 03:01] LABS: Total Bilirubin 20.1 mg/dL (0.2-1.0)
[2021-08-02] MEDS: KCL 10 MEQ/50 ML IVPREMIX 10 MEQ/50 ML BAG IV SCH ×3 (04:29→06:48)
[2021-08-02] MEDS ORDERED: NS 0.9% 100 ml BAG 100 ML ONE (06:16)
[2021-08-02 06:19] LABS: Hematocrit 22 % (35-47); Hemoglobin 7.5 g/dL (12.0-16.0); Mean Corpuscular HGB Conc 34 g/dL (31-36); Mean Corpuscular Hemoglobin 38 pg (27-31); Mean Corpuscular Volume 109 fL (80-97); Mean Platelet Volume 8.6 fL (7.4-10.4); Platelet Count 183 10^3/uL (150-450); Red Blood Count 1.99 10^6 /uL (3.70-4.87); Red Cell Distribution Width 20 % (10-15); White Blood Count 14.4 10^3/uL (3.5-10.8)
[2021-08-02 06:21] LABS: INR 2.43 (0.86-1.15)
[2021-08-02 06:51] LABS: Albumin 4.4 g/dL (3.2-5.2); Albumin/Globulin Ratio 2.9 (1-3); Calcium 9.3 mg/dL (8.6-10.3); Globulin 1.5 g/dL (2-4); Total Protein 5.9 g/dL (6.4-8.9); eGFR CKD-EPI 25.6 (>60)
[2021-08-02 06:58] LABS: Potassium 8.1 mmol/L (3.5-5.0); Total Bilirubin 20.3 mg/dL (0.2-1.0)
[2021-08-02] MEDS: Multivitamins/Minerals TAB PO SCH (07:26)
[2021-08-02 07:51] LABS: ABS Basophils 0.1 10^3/ul (0-0.2); ABS Eosinophils 0.1 10^3/ul (0-0.6); ABS Lymphocytes 0.7 10^3/ul (1.0-4.8); ABS Monocytes 1.1 10^3/ul (0-0.8); ABS Neutrophils 12.3 10^3/ul (1.5-7.7); Eosinophil % 0.9 %; Lymphocyte % 5.1 %; Nucleated Red Blood Cells % 0.1
[2021-08-02 08:02] LABS: Calcium 9.5 mg/dL (8.6-10.3); Phosphorus 2.9 mg/dL (2.5-5.0); Potassium 3.8 mmol/L (3.5-5.0); eGFR CKD-EPI 24.5 (>60)
[2021-08-02 08:03] LABS: Magnesium 2.2 mg/dL (1.9-2.7)
[2021-08-02] MEDS: Lidocaine 4% GEL 10 GM TUBE TOPICAL SCH (08:13)
[2021-08-02] MEDS: Lidocaine PATCH 5% PATCH TRANSDERM SCH ×2 (08:13)
[2021-08-02] MEDS: Ondansetron 4 mg VIAL 2 MG/ML 2 ml VIAL IV PRN (08:22)
[2021-08-02] MEDS: Multivitamins ADULT w/MIN LIQ 15 ML UDC PO SCH (09:25)
[2021-08-02] MEDS ORDERED: Albumin Human 25% 12.5 GM/50 ML BTL IV ONE ×2 (09:52→12:14)
[2021-08-02] MEDS ORDERED: Norepinephrine 16MCG/ML BAGD5W 4,000 MCG/250 ML BAG IV ONE (10:35)
[2021-08-02] MEDS ORDERED: Norepinephrine 16MCG/ML BAG NS 4,000 MCG/250 ML BAG IV SCH ×2 (11:00)
[2021-08-02] MEDS: Heparin 1,000 UNIT/ML 10 ml (10,000 UNITS) CATHLAB/DIALYSIS DIALYSIS SCH (11:40)
[2021-08-02] MEDS: ZOSYN 3.375 GM Q12H per EXTENDED INFUSION IV SCH (12:07)
[2021-08-02] MEDS: Rifaximin 20 mg/mL Suspension (Pharmacy to Compound) PO SCH (21:27)
[2021-08-03] MEDS: ZOSYN 3.375 GM Q12H per EXTENDED INFUSION IV SCH ×2 (01:38→12:30)
[2021-08-03] MEDS: Lactulose 30 ml UDC PO SCH ×4 (01:42→23:54)
[2021-08-03 05:16] LABS: ABS Basophils 0.1 10^3/ul (0-0.2); ABS Eosinophils 0.2 10^3/ul (0-0.6); ABS Lymphocytes 1.2 10^3/ul (1.0-4.8); ABS Neutrophils 10.7 10^3/ul (1.5-7.7); Eosinophil % 1.7 %; Hematocrit 23 % (35-47); Hemoglobin 7.5 g/dL (12.0-16.0); Mean Corpuscular HGB Conc 33 g/dL (31-36); Mean Corpuscular Hemoglobin 36 pg (27-31); Mean Corpuscular Volume 111 fL (80-97); Mean Platelet Volume 8.4 fL (7.4-10.4); Platelet Count 197 10^3/uL (150-450); Red Blood Count 2.06 10^6 /uL (3.70-4.87); Red Cell Distribution Width 20 % (10-15); White Blood Count 13.3 10^3/uL (3.5-10.8)
[2021-08-03 05:32] LABS: Albumin 4.2 g/dL (3.2-5.2); Albumin/Globulin Ratio 2.5 (1-3); Calcium 9.3 mg/dL (8.6-10.3); Globulin 1.7 g/dL (2-4); Potassium 3.4 mmol/L (3.5-5.0); Total Protein 5.9 g/dL (6.4-8.9); eGFR CKD-EPI 32.6 (>60)
[2021-08-03 06:12] LABS: Magnesium 2.1 mg/dL (1.9-2.7)
[2021-08-03] MEDS ORDERED: Norepinephrine 16MCG/ML BAG NS 4,000 MCG/250 ML BAG IV SCH (07:00)
[2021-08-03] MEDS: Nystatin TOP POWDER 15 GM BTL TOPICAL SCH ×2 (08:06→20:15)
[2021-08-03] MEDS: Pantoprazole VIAL 40 MG VIAL IV SCH ×2 (08:06→20:14)
[2021-08-03] MEDS: Multivitamins ADULT w/MIN LIQ 15 ML UDC PO SCH (08:06)
[2021-08-03] MEDS: Rifaximin 20 mg/mL Suspension (Pharmacy to Compound) PO SCH ×2 (08:08→20:16)
[2021-08-03 08:52] LABS: ABS Eosinophils 0.1 10^3/ul (0-0.6); ABS Lymphocytes 0.9 10^3/ul (1.0-4.8); ABS Monocytes 0.9 10^3/ul (0-0.8); ABS Neutrophils 9.9 10^3/ul (1.5-7.7); Eosinophil % 0.9 %; Hematocrit 23 % (35-47); Hemoglobin 7.4 g/dL (12.0-16.0); Lymphocyte % 7.7 %; Mean Corpuscular HGB Conc 33 g/dL (31-36); Mean Corpuscular Hemoglobin 36 pg (27-31); Mean Corpuscular Volume 111 fL (80-97); Platelet Count 183 10^3/uL (150-450); Red Blood Count 2.04 10^6 /uL (3.70-4.87); Red Cell Distribution Width 21 % (10-15); White Blood Count 11.9 10^3/uL (3.5-10.8)
[2021-08-03] MEDS: Lidocaine 4% GEL 10 GM TUBE TOPICAL SCH (08:54)
[2021-08-03] MEDS: Lidocaine PATCH 5% PATCH TRANSDERM SCH ×2 (08:54)
[2021-08-03] MEDS ORDERED: fentaNYL PATCH 25 MCG/HR 1 PATCH TRANSDERM ONE (10:46)
[2021-08-03] MEDS: Linezolid 600 MG IVPREMIX(*) 600 MG/300 ML BAG IVPB SCH ×2 (11:39→20:15)
[2021-08-03] MEDS ORDERED: Dextrose 50% Syringe 50 ml 25 GM/50 ML SYRINGE IV PUSH PRN (12:34)
[2021-08-03 12:46] LABS: Lactate Dehydrogenase, BF 117 U/L
[2021-08-03 13:49] LABS: Lithium 0.43 mmol/L (0.6-1.2)
[2021-08-03 18:17] LABS: INR 2.32 (0.86-1.15)
[2021-08-03] MEDS: fentaNYL Patch Check Q Shift NOTE FOLLOW UP SCH (18:48)
[2021-08-04] MEDS: ZOSYN 3.375 GM Q12H per EXTENDED INFUSION IV SCH ×2 (01:38→13:42)
[2021-08-04 04:54] LABS: INR 2.2 (0.86-1.15)
[2021-08-04 04:55] LABS: ABS Eosinophils 0.2 10^3/ul (0-0.6); ABS Lymphocytes 1.2 10^3/ul (1.0-4.8); ABS Monocytes 0.8 10^3/ul (0-0.8); Eosinophil % 2.3 %; Hematocrit 23 % (35-47); Hemoglobin 7.5 g/dL (12.0-16.0); Lymphocyte % 11.5 %; Mean Corpuscular HGB Conc 32 g/dL (31-36); Mean Corpuscular Hemoglobin 36 pg (27-31); Mean Corpuscular Volume 113 fL (80-97); Mean Platelet Volume 8.1 fL (7.4-10.4); Platelet Count 186 10^3/uL (150-450); Red Blood Count 2.07 10^6 /uL (3.70-4.87); Red Cell Distribution Width 20 % (10-15); White Blood Count 10.3 10^3/uL (3.5-10.8)
[2021-08-04 05:30] LABS: Albumin 3.9 g/dL (3.2-5.2); Albumin/Globulin Ratio 2.1 (1-3); Calcium 8.7 mg/dL (8.6-10.3); Globulin 1.9 g/dL (2-4); Phosphorus 2.5 mg/dL (2.5-5.0); Potassium 3.1 mmol/L (3.5-5.0); Total Protein 5.8 g/dL (6.4-8.9); eGFR CKD-EPI 27.9 (>60)
[2021-08-04 05:42] LABS: Total Bilirubin 20.7 mg/dL (0.2-1.0)
[2021-08-04] MEDS: Potassium Chloride LIQUID 20 MEQ/15 ML LIQUID PO SCH ×3 (06:17→07:57)
[2021-08-04] MEDS: fentaNYL Patch Check Q Shift NOTE FOLLOW UP SCH (07:31)
[2021-08-04] MEDS: Linezolid 600 MG IVPREMIX(*) 600 MG/300 ML BAG IVPB SCH ×2 (07:37→21:37)
[2021-08-04] MEDS: Ondansetron 4 mg VIAL 2 MG/ML 2 ml VIAL IV PRN ×3 (07:37→21:37)
[2021-08-04] MEDS: Pantoprazole VIAL 40 MG VIAL IV SCH ×2 (07:39→21:37)
[2021-08-04] MEDS: Multivitamins ADULT w/MIN LIQ 15 ML UDC PO SCH (07:39)
[2021-08-04] MEDS: Lactulose 30 ml UDC PO SCH ×3 (07:39→22:18)
[2021-08-04] MEDS: Rifaximin 20 mg/mL Suspension (Pharmacy to Compound) PO SCH ×2 (07:40→22:17)
[2021-08-04] MEDS: Lidocaine PATCH 5% PATCH TRANSDERM SCH ×2 (07:58)
[2021-08-04] MEDS: Lidocaine 4% GEL 10 GM TUBE TOPICAL SCH (07:58)
[2021-08-04] MEDS: Nystatin TOP POWDER 15 GM BTL TOPICAL SCH ×2 (07:58→21:36)
[2021-08-04 10:10] LABS: Glucose, BF 125 mg/dL
[2021-08-04 11:41] LABS: BF PH 7.6
[2021-08-04 12:25] LABS: PCO2 Arterial 49 mmHg (35-45); PO2 Arterial 137 mmHg (80-100)
[2021-08-04 13:25] LABS: Fluid Type, Protein, Total PERITONEAL
[2021-08-04] MEDS ORDERED: Naloxone 0.4 mg VIAL 0.4 mg/ml 1 ml VIAL ONE (14:04)
[2021-08-04] MEDS ORDERED: Naloxone 0.4 mg VIAL 0.4 mg/ml 1 ml VIAL IV PUSH ONE (14:12)
[2021-08-05] MEDS: ZOSYN 3.375 GM Q12H per EXTENDED INFUSION IV SCH ×2 (00:05→13:11)
[2021-08-05 05:46] LABS: ABS Eosinophils 0.3 10^3/ul (0-0.6); ABS Lymphocytes 0.9 10^3/ul (1.0-4.8); ABS Monocytes 0.5 10^3/ul (0-0.8); ABS Neutrophils 6.1 10^3/ul (1.5-7.7); Eosinophil % 3.3 %; Hematocrit 24 % (35-47); Hemoglobin 7.8 g/dL (12.0-16.0); Lymphocyte % 11.8 %; Mean Corpuscular HGB Conc 32 g/dL (31-36); Mean Corpuscular Hemoglobin 36 pg (27-31); Mean Corpuscular Volume 112 fL (80-97); Mean Platelet Volume 7.8 fL (7.4-10.4); Platelet Count 181 10^3/uL (150-450); Red Blood Count 2.15 10^6 /uL (3.70-4.87); Red Cell Distribution Width 19 % (10-15); White Blood Count 7.8 10^3/uL (3.5-10.8)
[2021-08-05 07:39] LABS: Albumin 3.8 g/dL (3.2-5.2); CO2 Carbon Dioxide 22 mmol/L (22-32); Chloride 93 mmol/L (101-111); Sodium 130 mmol/L (135-145)
[2021-08-05 07:45] LABS: ALT 22 U/L (7-52); Albumin/Globulin Ratio 1.7 (1-3); Alkaline Phosphatase 109 U/L (35-149); Blood Urea Nitrogen 21 mg/dL (6-24); Globulin 2.2 g/dL (2-4); Glucose 180 mg/dL (70-100); eGFR CKD-EPI 18.6 (>60)
[2021-08-05 08:12] LABS: INR 1.89 (0.86-1.15)
[2021-08-05] MEDS: Lactulose 30 ml UDC PO SCH ×3 (08:13→22:32)
[2021-08-05] MEDS: Rifaximin 20 mg/mL Suspension (Pharmacy to Compound) PO SCH ×2 (08:14→21:15)
[2021-08-05] MEDS: Multivitamins ADULT w/MIN LIQ 15 ML UDC PO SCH (08:15)
[2021-08-05] MEDS: Linezolid 600 MG IVPREMIX(*) 600 MG/300 ML BAG IVPB SCH ×2 (08:15→21:15)
[2021-08-05] MEDS: Pantoprazole VIAL 40 MG VIAL IV SCH ×2 (08:15→21:14)
[2021-08-05] MEDS: Nystatin TOP POWDER 15 GM BTL TOPICAL SCH ×2 (08:16→21:15)
[2021-08-05 08:22] LABS: Anion Gap 15 mmol/L (2-11)
[2021-08-05] MEDS: Ondansetron 4 mg VIAL 2 MG/ML 2 ml VIAL IV PRN ×2 (10:10→21:12)
[2021-08-05] MEDS: Heparin 1,000 UNIT/ML 10 ml (10,000 UNITS) CATHLAB/DIALYSIS DIALYSIS SCH (11:54)
[2021-08-05] MEDS: Lidocaine 4% GEL 10 GM TUBE TOPICAL SCH (13:04)
[2021-08-06] MEDS: ZOSYN 3.375 GM Q12H per EXTENDED INFUSION IV SCH ×2 (00:11→14:36)
[2021-08-06 06:08] LABS: ABS Basophils 0.1 10^3/ul (0-0.2); ABS Eosinophils 0.2 10^3/ul (0-0.6); ABS Lymphocytes 0.9 10^3/ul (1.0-4.8); ABS Monocytes 0.7 10^3/ul (0-0.8); ABS Neutrophils 6.3 10^3/ul (1.5-7.7); Eosinophil % 2.4 %; Hematocrit 25 % (35-47); Hemoglobin 7.9 g/dL (12.0-16.0); Lymphocyte % 11.4 %; Mean Corpuscular HGB Conc 32 g/dL (31-36); Mean Corpuscular Hemoglobin 35 pg (27-31); Mean Corpuscular Volume 111 fL (80-97); Mean Platelet Volume 7.3 fL (7.4-10.4); Nucleated Red Blood Cells % 0.1; Platelet Count 160 10^3/uL (150-450); Red Blood Count 2.25 10^6 /uL (3.70-4.87); Red Cell Distribution Width 20 % (10-15); White Blood Count 8.2 10^3/uL (3.5-10.8)
[2021-08-06 06:18] LABS: INR 1.99 (0.86-1.15)
[2021-08-06 06:37] LABS: Albumin 3.5 g/dL (3.2-5.2); Albumin/Globulin Ratio 1.6 (1-3); Calcium 8.9 mg/dL (8.6-10.3); Globulin 2.2 g/dL (2-4); Potassium 3.6 mmol/L (3.5-5.0); Total Protein 5.7 g/dL (6.4-8.9)
[2021-08-06 06:39] LABS: Magnesium 1.9 mg/dL (1.9-2.7)
[2021-08-06 06:40] LABS: Total Bilirubin 16.4 mg/dL (0.2-1.0)
[2021-08-06] MEDS: Ondansetron 4 mg VIAL 2 MG/ML 2 ml VIAL IV PRN ×2 (08:58→20:50)
[2021-08-06] MEDS: Multivitamins ADULT w/MIN LIQ 15 ML UDC PO SCH (08:58)
[2021-08-06] MEDS: Rifaximin 20 mg/mL Suspension (Pharmacy to Compound) PO SCH ×2 (08:58→20:53)
[2021-08-06] MEDS: Pantoprazole VIAL 40 MG VIAL IV SCH ×2 (08:58→20:55)
[2021-08-06] MEDS: Lactulose 30 ml UDC PO SCH ×2 (09:00→14:36)
[2021-08-06] MEDS: Heparin 1,000 UNIT/ML 10 ml (10,000 UNITS) CATHLAB/DIALYSIS DIALYSIS SCH (12:05)
[2021-08-06] MEDS: Linezolid 600 MG IVPREMIX(*) 600 MG/300 ML BAG IVPB SCH ×2 (12:50→20:52)
[2021-08-06] MEDS: Lidocaine 4% GEL 10 GM TUBE TOPICAL SCH (12:50)
[2021-08-06] MEDS: Nystatin TOP POWDER 15 GM BTL TOPICAL SCH ×2 (12:51→20:55)
[2021-08-06] MEDS ORDERED: Acetaminophen IV 1 GM/100ML 100 ML IV ONE (21:45)
[2021-08-07] MEDS ORDERED: NS 0.9% 100 ml BAG 100 ML ONE (00:23)
[2021-08-07] MEDS: Lactulose 30 ml UDC PO SCH ×4 (00:28→23:57)
[2021-08-07] MEDS: ZOSYN 3.375 GM Q12H per EXTENDED INFUSION IV SCH ×3 (00:28→23:57)
[2021-08-07 04:46] LABS: INR 2.05 (0.86-1.15)
[2021-08-07 04:51] LABS: ABS Basophils 0.1 10^3/ul (0-0.2); ABS Eosinophils 0.2 10^3/ul (0-0.6); ABS Lymphocytes 1.1 10^3/ul (1.0-4.8); ABS Monocytes 0.7 10^3/ul (0-0.8); ABS Neutrophils 6.7 10^3/ul (1.5-7.7); Eosinophil % 2.3 %; Hematocrit 25 % (35-47); Hemoglobin 7.9 g/dL (12.0-16.0); Mean Corpuscular HGB Conc 32 g/dL (31-36); Mean Corpuscular Hemoglobin 36 pg (27-31); Mean Corpuscular Volume 112 fL (80-97); Mean Platelet Volume 7.4 fL (7.4-10.4); Nucleated Red Blood Cells % 0.1; Platelet Count 144 10^3/uL (150-450); Red Cell Distribution Width 19 % (10-15); White Blood Count 8.7 10^3/uL (3.5-10.8)
[2021-08-07 05:14] LABS: Albumin 3.5 g/dL (3.2-5.2); Albumin/Globulin Ratio 1.5 (1-3); Calcium 8.7 mg/dL (8.6-10.3); Globulin 2.3 g/dL (2-4); Potassium 3.4 mmol/L (3.5-5.0); Total Protein 5.8 g/dL (6.4-8.9); eGFR CKD-EPI 25.7 (>60)
[2021-08-07 05:18] LABS: Magnesium 1.8 mg/dL (1.9-2.7); Total Bilirubin 15.9 mg/dL (0.2-1.0)
[2021-08-07] MEDS ORDERED: KCL 10 MEQ/50 ML IVPREMIX 10 MEQ/50 ML BAG IV ONE (06:00)
[2021-08-07] MEDS ORDERED: Magnesium Sulfate IV 1GM/100ML 1 GM/100 ML BAG IV ONE (06:00)
[2021-08-07] MEDS: Ondansetron 4 mg VIAL 2 MG/ML 2 ml VIAL IV PRN ×2 (08:01→22:06)
[2021-08-07] MEDS: Pantoprazole VIAL 40 MG VIAL IV SCH ×2 (08:08→21:38)
[2021-08-07] MEDS: Rifaximin 20 mg/mL Suspension (Pharmacy to Compound) PO SCH ×2 (08:09→21:55)
[2021-08-07] MEDS: Nystatin TOP POWDER 15 GM BTL TOPICAL SCH ×2 (08:09→21:55)
[2021-08-07] MEDS: Multivitamins ADULT w/MIN LIQ 15 ML UDC PO SCH (08:09)
[2021-08-07] MEDS: Lidocaine 4% GEL 10 GM TUBE TOPICAL SCH (08:10)
[2021-08-07] MEDS: Linezolid 600 MG IVPREMIX(*) 600 MG/300 ML BAG IVPB SCH ×2 (08:10→21:50)
[2021-08-07] MEDS: Heparin 1,000 UNIT/ML 10 ml (10,000 UNITS) CATHLAB/DIALYSIS DIALYSIS SCH (11:04)
[2021-08-08 05:04] LABS: ABS Basophils 0.1 10^3/ul (0-0.2); ABS Eosinophils 0.2 10^3/ul (0-0.6); ABS Monocytes 0.6 10^3/ul (0-0.8); ABS Neutrophils 7.1 10^3/ul (1.5-7.7); Eosinophil % 1.8 %; Hematocrit 25 % (35-47); Hemoglobin 8.1 g/dL (12.0-16.0); Lymphocyte % 11.3 %; Mean Corpuscular HGB Conc 32 g/dL (31-36); Mean Corpuscular Hemoglobin 36 pg (27-31); Mean Corpuscular Volume 111 fL (80-97); Mean Platelet Volume 7.5 fL (7.4-10.4); Nucleated Red Blood Cells % 0.1; Platelet Count 146 10^3/uL (150-450); Red Blood Count 2.27 10^6 /uL (3.70-4.87); Red Cell Distribution Width 20 % (10-15); White Blood Count 9.1 10^3/uL (3.5-10.8)
[2021-08-08 05:11] LABS: INR 2.02 (0.86-1.15)
[2021-08-08 05:18] LABS: ALT 27 U/L (7-52); Albumin 3.6 g/dL (3.2-5.2); Albumin/Globulin Ratio 1.6 (1-3); Alkaline Phosphatase 134 U/L (35-149); Blood Urea Nitrogen 13 mg/dL (6-24); CO2 Carbon Dioxide 22 mmol/L (22-32); Chloride 96 mmol/L (101-111); Globulin 2.3 g/dL (2-4); Glucose 165 mg/dL (70-100); Sodium 131 mmol/L (135-145); Total Protein 5.9 g/dL (6.4-8.9)
[2021-08-08 05:22] LABS: Anion Gap 13 mmol/L (2-11)
[2021-08-08 06:15] VITALS: BP 125/52
[2021-08-08] MEDS ORDERED: Heparin 1,000 UNIT/ML 10 ml (10,000 UNITS) CATHLAB/DIALYSIS DIALYSIS SCH (09:00)
== END 2021-08-08 08:15 | disposition short-term general hospital (02) | DRG 710 ==
LOC: ED 09:42 → SUATTDRO 15:24 → EDHOLD 15:24 → MEDTELE 20:21 → ICU 08-01 22:24
PROVIDERS: ADMIT Student in an Organized Health Care Education/Training Program; ATTEND Internal Medicine
PROC: O.GIEGD (2021-07-12 15:10)